=== PATIENT | male | born 1965 | race Caucasian/White ===

== ENCOUNTER 2021-07-25 00:13 | Emergency (ER) | payer BC ==
[2021-07-25] MEDS ORDERED: SODIUM CHLORIDE 0.9% 1,000 ML IV STA ×2 (00:18→01:26)
--- NOTE | 2021-07-25 00:19 | ED ---
Arrhythmia/Palpitations HPI - General Stated Complaint: Tachycardia Time Seen by Provider: 07/25/21 00:14 Source: RN notes reviewed, old records reviewed Mode of arrival: EMS Limitations: no limitations - History of Present Illness Initial Comments: This is a 48-year-old male presenting by EMS coming in for tachycardia heart rate in the 200s high 100s prior to arrival. History of tachycardia. No drugs or alcohol. Patient going through a lot of stress lately patient stress is related to recent. Patient is in town with family and he didn't feel plan for this weekend. Patient did not take his usual heart rate medication today or chlamydia last few days. Otherwise no fevers no cough congestion or shortness of breath on arrival to ER patient symptoms have resolved MD Complaint: rapid heart beat, "heart racing", palpitations -: minutes(s) Context: occurred during rest, occurred during exertion Arrhythmia History: SVT Associated Symptoms: chest pain, anxiety Treatments Prior to Arrival: beta-kassandra - Related Data Allergies Allergy/AdvReac Type Severity Reaction Status Date / Time ciprofloxacin [From Cipro] Allergy Nausea & Verified 07/25/21 00:21 Vomiting Review of Systems ROS Statement: Those systems with pertinent positive or pertinent negative responses have been documented in the HPI. ROS Other: All systems not noted in ROS Statement are negative. General Exam General appearance: alert, in no apparent distress, anxious Head exam: Present: atraumatic, normocephalic, normal inspection Eye exam: Present: normal appearance, PERRL, EOMI. Absent: scleral icterus, conjunctival injection, periorbital swelling ENT exam: Present: normal exam, mucous membranes moist Neck exam: Present: normal inspection. Absent: tenderness, meningismus, lympha denopathy Respiratory exam: Present: normal lung sounds bilaterally. Absent: respiratory distress, wheezes, rales, rhonchi, stridor Cardiovascular Exam: Present: normal rhythm, tachycardia, normal heart sounds. Absent: systolic murmur, diastolic murmur, rubs, gallop, clicks GI/Abdominal exam: Present: soft, normal bowel sounds. Absent: distended, tenderness, guarding, rebound, rigid Extremities exam: Present: normal inspection, full ROM, normal capillary refill. Absent: tenderness, pedal edema, joint swelling, calf tenderness Back exam: Present: normal inspection Neurological exam: Present: alert, oriented X3, CN II-XII intact Psychiatric exam: Present: normal affect, normal mood Skin exam: Present: warm, dry, intact, normal color. Absent: rash Course Vital Signs 07/25/21 00:17 Temperature 98.6 F Pulse Rate 91 Respiratory 18 Rate Blood Pressure 132/95 O2 Sat by Pulse 94 L Oximetry - Reevaluation(s) Reevaluation #1: 07/25/21 01:54 Medical record is reviewed Reevaluation #2: 07/25/21 01:54 Patient informed of results and questions answered Reevaluation #3: 07/25/21 01:54 Patient continued abnormal heart rate normal sinus rhythm EKG Findings - EKG Comments: EKG Findings:: EKG sinus rhythm 90 MT 173 QRS 90 QTC 383 Medical Decision Making - Medical Decision Making 56 male with tachycardia severe on outpatient basis patient did take his own Toprol into his condition. Patient has normal heart rate normal sinus rhythm here in the ER patient given lab tests and EKGs and can be discharged home - Lab Data Result diagrams: 07/25/21 00:23 07/25/21 00:23 Lab Results 07/25/21 07/25/21 07/25/21 Range/Units 00:23 00:23 00:23 WBC 10.2 (3.8-10.6) k/uL RBC 4.63 (4.30-5.90) m/uL Hgb 14.8 (13.0-17.5) gm/dL Hct 44.8 (39.0-53.0) % MCV 96.8 (80.0-100.0) fL MCH 31.9 (25.0-35.0) pg MCHC 32.9 (31.0-37.0) g/dL RDW 13.5 (11.5-15.5) % Plt Count 294 (150-450) k/uL MPV 7.3 Neutrophils % 83 % Lymphocytes % 9 % Monocytes % 6 % Eosinophils % 1 % Basophils % 0 % Neutrophils # 8.5 H (1.3-7.7) k/uL Lymphocytes # 0.9 L (1.0-4.8) k/uL Monocytes # 0.6 (0-1.0) k/uL Eosinophils # 0.1 (0-0.7) k/uL Basophils # 0.0 (0-0.2) k/uL PT 9.9 (9.0-12.0) sec INR 0.9 (<1.2) APTT 22.8 (22.0-30.0) sec Sodium 137 (137-145) mmol/L Potassium 4.1 (3.5-5.1) mmol/L Chloride 109 H (98-107) mmol/L Carbon Dioxide 21 L (22-30) mmol/L Anion Gap 7 mmol/L BUN 32 H (9-20) mg/dL Creatinine 0.79 (0.66-1.25) mg/dL Est GFR (CKD-EPI)AfAm >90 (>60 ml/min/1.73 sqM) Est GFR (CKD-EPI)NonAf >90 (>60 ml/min/1.73 sqM) Glucose 237 H (74-99) mg/dL Plasma Lactic Acid Mainor (0.7-2.0) mmol/L Calcium 8.7 (8.4-10.2) mg/dL Phosphorus 3.4 (2.5-4.5) mg/dL Magnesium 2.3 (1.6-2.3) mg/dL Total Bilirubin 0.3 (0.2-1.3) mg/dL AST 28 (17-59) U/L ALT 21 (4-49) U/L Alkaline Phosphatase 67 (38-126) U/L Troponin I (0.000-0.034) ng/mL NT-Pro-B Natriuret Pep pg/mL Total Protein 6.3 (6.3-8.2) g/dL Albumin 3.9 (3.5-5.0) g/dL TSH 1.180 (0.465-4.680) mIU/L 07/25/21 07/25/21 07/25/21 Range/Units 00:23 00:23 00:23 WBC (3.8-10.6) k/uL RBC (4.30-5.90) m/uL Hgb (13.0-17.5) gm/dL Hct (39.0-53.0) % MCV (80.0-100.0) fL MCH (25.0-35.0) pg MCHC (31.0-37.0) g/dL RDW (11.5-15.5) % Plt Count (150-450) k/uL MPV Neutrophils % % Lymphocytes % % Monocytes % % Eosinophils % % Basophils % % Neutrophils # (1.3-7.7) k/uL Lymphocytes # (1.0-4.8) k/uL Monocytes # (0-1.0) k/uL Eosinophils # (0-0.7) k/uL Basophils # (0-0.2) k/uL PT (9.0-12.0) sec INR (<1.2) APTT (22.0-30.0) sec Sodium (137-145) mmol/L Potassium (3.5-5.1) mmol/L Chloride (98-107) mmol/L Carbon Dioxide (22-30) mmol/L Anion Gap mmol/L BUN (9-20) mg/dL Creatinine (0.66-1.25) mg/dL Est GFR (CKD-EPI)AfAm (>60 ml/min/1.73 sqM) Est GFR (CKD-EPI)NonAf (>60 ml/min/1.73 sqM) Glucose (74-99) mg/dL Plasma Lactic Acid Mainor 2.3 H* (0.7-2.0) mmol/L Calcium (8.4-10.2) mg/dL Phosphorus (2.5-4.5) mg/dL Magnesium (1.6-2.3) mg/dL Total Bilirubin (0.2-1.3) mg/dL AST (17-59) U/L ALT (4-49) U/L Alkaline Phosphatase (38-126) U/L Troponin I <0.012 (0.000-0.034) ng/mL NT-Pro-B Natriuret Pep 82 pg/mL Total Protein (6.3-8.2) g/dL Albumin (3.5-5.0) g/dL TSH (0.465-4.680) mIU/L Disposition Clinical Impression: Atypical chest pain, Tachycardia Disposition: HOME SELF-CARE Condition: Good Instructions (If sedation given, give patient instructions): Tachycardia (ED) Is patient prescribed a controlled substance at d/c from ED?: No Referrals: None,Stated [Primary Care Provider] - 1-2 days
[2021-07-25 00:21] VITALS: RESP 18; TEMP 98.6
[2021-07-25 00:39] LABS: Basophils % (A) 0 %; Eosinophils # (A) 0.1 k/uL (0-0.7); Eosinophils % (A) 1 %; HCT 44.8 % (39.0-53.0); HGB 14.8 gm/dL (13.0-17.5); Lymphocytes # (A) 0.9 k/uL (1.0-4.8); Lymphocytes % (A) 9 %; MCH 31.9 pg (25.0-35.0); MCHC 32.9 g/dL (31.0-37.0); MCV 96.8 fL (80.0-100.0); Mean Platelet Volume 7.3; Monocytes # (A) 0.6 k/uL (0-1.0); Monocytes % (A) 6 %; Neutrophils # (A) 8.5 k/uL (1.3-7.7); Neutrophils % (A) 83 %; Platelet Count 294 k/uL (150-450); RBC 4.63 m/uL (4.30-5.90); RDW 13.5 % (11.5-15.5); WBC 10.2 k/uL (3.8-10.6)
[2021-07-25 00:48] LABS: INR 0.9 (<1.2); Partial Thromboplastin Time 22.8 sec (22.0-30.0); Prothrombin Time 9.9 sec (9.0-12.0)
[2021-07-25 00:51] LABS: ALT 21 U/L (4-49); AST 28 U/L (17-59); African American GFR (CKD) >90 (>60 ml/min/1.73 sqM); Albumin 3.9 g/dL (3.5-5.0); Alkaline Phosphatase 67 U/L (38-126); Anion Gap 7 mmol/L; Blood Urea Nitrogen 32 mg/dL (9-20); Calcium 8.7 mg/dL (8.4-10.2); Carbon Dioxide 21 mmol/L (22-30); Chloride 109 mmol/L (98-107); Glucose 237 mg/dL (74-99); Magnesium 2.3 mg/dL (1.6-2.3); Non-African American GFR(CKD) >90 (>60 ml/min/1.73 sqM); Phosphorus 3.4 mg/dL (2.5-4.5); Potassium 4.1 mmol/L (3.5-5.1); Sodium 137 mmol/L (137-145); Total Bilirubin 0.3 mg/dL (0.2-1.3); Total Protein 6.3 g/dL (6.3-8.2)
[2021-07-25] MEDS ORDERED: PANTOPRAZOLE 40 MG/10 ML VIAL IVP STA (01:32)
[2021-07-25] MEDS ORDERED: FAMOTIDINE 20 MG/2 ML VIAL IV STA (01:32)
[2021-07-25 03:18] VITALS: BP 115/77; PULSE 76
== END 2021-07-25 02:40 | disposition home or self-care (01) ==
LOC: EC 00:13
DX: R00.0 Tachycardia, unspecified (principal); Z88.1 Allergy status to other antibiotic agents
CPT/HCPCS: 36415; 93005; 83880; 80053; 83605; 83735; 84100; 84443; 84484; 85025; 85610; 85730; 99285; 96374; 96375; C9113

== ENCOUNTER 2021-11-26 23:47 | Emergency (ER) | payer BC ==
[2021-11-26 23:51] VITALS: RESP 16; TEMP 97.7
--- NOTE | 2021-11-26 23:58 | ED ---
Arrhythmia/Palpitations HPI - General Chief Complaint: Chest Pain Stated Complaint: Chest pain Time Seen by Provider: 11/26/21 23:54 Source: patient Mode of arrival: EMS Limitations: no limitations - History of Present Illness Initial Comments: this patient is 56-year-old man who presents with complaint that his heart rate was elevated. Patient states that he has previous history of episodes of tachycardia. Patient states that he had just used his inhaler for his asthma which has been flaring up. The patient states that his heart rate went to pro ximally 150. He took a dose of metoprolol, 100 mg and waited number of minutes. When the heart rate was still elevated he called EMS. The patient states that he was given an IV and medication by EMS and his heart rate slowed MD Complaint: "heart racing" -: minutes(s) Context: occurred during rest Arrhythmia History: SVT Associated Symptoms: denies other symptoms Treatments Prior to Arrival: beta-kassandra, adenosine - Related Data Allergies Allergy/AdvReac Type Severity Reaction Status Date / Time ciprofloxacin [From Cipro] Allergy Nausea & Verified 07/25/21 00:21 Vomiting Review of Systems ROS Statement: Those systems with pertinent positive or pertinent negative responses have been documented in the HPI. ROS Other: All systems not noted in ROS Statement are negative. Constitutional: Denies: fever, chills, weakness Respiratory: Reports: as per HPI, dyspnea, wheezes. Denies: cough Cardiovascular: Reports: palpitations. Denies: chest pain, orthopnea, edema, syncope Gastrointestinal: Denies: abdominal pain, nausea, vomiting, diarrhea Genitourinary: Denies: dysuria, hematuria Musculoskeletal: Denies: back pain Skin: Denies: rash Neurological: Denies: headache, weakness Past Medical History Past Medical History: Asthma, Chest Pain / Angina Additional Past Medical History / Comment(s): tachycardia History of Any Multi-Drug Resistant Organisms: None Reported Past Surgical History: No Surgical Hx Reported Past Psychological History: No Psychological Hx Reported Smoking Status: Never smoker Past Alcohol Use History: Occasional Past Drug Use History: None Reported General Exam Limitations: no limitations General appearance: alert, in no apparent distress Head exam: Present: atraumatic, normocephalic Eye exam: Present: normal appearance. Absent: scleral icterus, conjunctival injection Neck exam: Present: normal inspection Respiratory exam: Present: wheezes. Absent: respiratory distress, rales, rhonchi, stridor Cardiovascular Exam: Present: regular rate, normal rhythm, normal heart sounds. Absent: systolic murmur, diastolic murmur, rubs, gallop GI/Abdominal exam: Present: soft. Absent: distended, tenderness, guarding, rebound, rigid, mass Extremities exam: Present: normal inspection, normal capillary refill. Absent: pedal edema, calf tenderness Back exam: Present: normal inspection. Absent: CVA tenderness (R), CVA tenderness (L) Neurological exam: Present: alert Skin exam: Present: warm, dry, intact, normal color. Absent: rash Course Vital Signs 11/26/21 23:49 Temperature 97.7 F Respiratory 16 Rate O2 Sat by Pulse 98 Oximetry EKG Findings - EKG Results: EKG: interpreted by GABI POSADAS, sinus rhythm (rate 90 bpm), normal axis, normal QRS, normal ST/T, no acute changes Medical Decision Making - Lab Data Result diagrams: 11/27/21 00:10 11/27/21 00:10 Lab Results 11/27/21 11/27/21 11/27/21 Range/Units 00:10 00:10 00:10 WBC 10.9 H (3.8-10.6) k/uL RBC 4.88 (4.30-5.90) m/uL Hgb 15.4 (13.0-17.5) gm/dL Hct 46.4 (39.0-53.0) % MCV 95.0 (80.0-100.0) fL MCH 31.6 (25.0-35.0) pg MCHC 33.3 (31.0-37.0) g/dL RDW 13.2 (11.5-15.5) % Plt Count 395 (150-450) k/uL MPV 7.4 Neutrophils % 78 % Lymphocytes % 13 % Monocytes % 7 % Eosinophils % 1 % Basophils % 0 % Neutrophils # 8.5 H (1.3-7.7) k/uL Lymphocytes # 1.4 (1.0-4.8) k/uL Monocytes # 0.7 (0-1.0) k/uL Eosinophils # 0.1 (0-0.7) k/uL Basophils # 0.1 (0-0.2) k/uL PT 9.7 (9.0-12.0) sec INR 0.9 (<1.2) APTT 20.9 L (22.0-30.0) sec Sodium 136 L (137-145) mmol/L Potassium 4.3 (3.5-5.1) mmol/L Chloride 103 (98-107) mmol/L Carbon Dioxide 21 L (22-30) mmol/L Anion Gap 12 mmol/L BUN 28 H (9-20) mg/dL Creatinine 0.82 (0.66-1.25) mg/dL Est GFR (CKD-EPI)AfAm >90 (>60 ml/min/1.73 sqM) Est GFR (CKD-EPI)NonAf >90 (>60 ml/min/1.73 sqM) Glucose 138 H (74-99) mg/dL Calcium 9.2 (8.4-10.2) mg/dL Magnesium 2.0 (1.6-2.3) mg/dL Total Bilirubin 0.5 (0.2-1.3) mg/dL AST 70 H (17-59) U/L ALT 59 H (4-49) U/L Alkaline Phosphatase 70 (38-126) U/L Troponin I (0.000-0.034) ng/mL Total Protein 6.7 (6.3-8.2) g/dL Albumin 4.2 (3.5-5.0) g/dL 11/27/21 Range/Units 00:10 WBC (3.8-10.6) k/uL RBC (4.30-5.90) m/uL Hgb (13.0-17.5) gm/dL Hct (39.0-53.0) % MCV (80.0-100.0) fL MCH (25.0-35.0) pg MCHC (31.0-37.0) g/dL RDW (11.5-15.5) % Plt Count (150-450) k/uL MPV Neutrophils % % Lymphocytes % % Monocytes % % Eosinophils % % Basophils % % Neutrophils # (1.3-7.7) k/uL Lymphocytes # (1.0-4.8) k/uL Monocytes # (0-1.0) k/uL Eosinophils # (0-0.7) k/uL Basophils # (0-0.2) k/uL PT (9.0-12.0) sec INR (<1.2) APTT (22.0-30.0) sec Sodium (137-145) mmol/L Potassium (3.5-5.1) mmol/L Chloride (98-107) mmol/L Carbon Dioxide (22-30) mmol/L Anion Gap mmol/L BUN (9-20) mg/dL Creatinine (0.66-1.25) mg/dL Est GFR (CKD-EPI)AfAm (>60 ml/min/1.73 sqM) Est GFR (CKD-EPI)NonAf (>60 ml/min/1.73 sqM) Glucose (74-99) mg/dL Calcium (8.4-10.2) mg/dL Magnesium (1.6-2.3) mg/dL Total Bilirubin (0.2-1.3) mg/dL AST (17-59) U/L ALT (4-49) U/L Alkaline Phosphatase (38-126) U/L Troponin I <0.012 (0.000-0.034) ng/mL Total Protein (6.3-8.2) g/dL Albumin (3.5-5.0) g/dL Disposition Clinical Impression: SVT (supraventricular tachycardia) Disposition: HOME SELF-CARE Condition: Good Instructions (If sedation given, give patient instructions): Chest Pain (ED) Is patient prescribed a controlled substance at d/c from ED?: No Referrals: Nonstaff,Physician [Primary Care Provider] - 1-2 days
[2021-11-27] MEDS ORDERED: SODIUM CHLORIDE 0.9% 500 ML 500 ML IV STA (00:06)
--- NOTE | 2021-11-27 00:49 | XR ---
EXAMINATION TYPE: XR chest 1V portable DATE OF EXAM: 11/27/2021 COMPARISON: NONE HISTORY: Dysrhythmia TECHNIQUE: Single view FINDINGS: There is no heart failure nor confluent pneumonic infiltrate. Costophrenic angles are clear . There are calcified granuloma in the right lung. There are chest leads. Bony thorax is intact IMPRESSION: No active cardiopulmonary disease. Normal heart
[2021-11-27] MEDS ORDERED: ONDANSETRON 4 MG/2 ML VIAL IVP STA (01:05)
[2021-11-27 01:10] LABS: ALT 59 U/L (4-49); AST 70 U/L (17-59); African American GFR (CKD) >90 (>60 ml/min/1.73 sqM); Albumin 4.2 g/dL (3.5-5.0); Alkaline Phosphatase 70 U/L (38-126); Anion Gap 12 mmol/L; Blood Urea Nitrogen 28 mg/dL (9-20); Calcium 9.2 mg/dL (8.4-10.2); Carbon Dioxide 21 mmol/L (22-30); Chloride 103 mmol/L (98-107); Glucose 138 mg/dL (74-99); Non-African American GFR(CKD) >90 (>60 ml/min/1.73 sqM); Potassium 4.3 mmol/L (3.5-5.1); Sodium 136 mmol/L (137-145); Total Bilirubin 0.5 mg/dL (0.2-1.3); Total Protein 6.7 g/dL (6.3-8.2)
[2021-11-27 01:11] LABS: Basophils # (A) 0.1 k/uL (0-0.2); Basophils % (A) 0 %; Eosinophils # (A) 0.1 k/uL (0-0.7); Eosinophils % (A) 1 %; HCT 46.4 % (39.0-53.0); HGB 15.4 gm/dL (13.0-17.5); Lymphocytes # (A) 1.4 k/uL (1.0-4.8); Lymphocytes % (A) 13 %; MCH 31.6 pg (25.0-35.0); MCHC 33.3 g/dL (31.0-37.0); Mean Platelet Volume 7.4; Monocytes # (A) 0.7 k/uL (0-1.0); Monocytes % (A) 7 %; Neutrophils # (A) 8.5 k/uL (1.3-7.7); Neutrophils % (A) 78 %; Platelet Count 395 k/uL (150-450); RBC 4.88 m/uL (4.30-5.90); RDW 13.2 % (11.5-15.5); WBC 10.9 k/uL (3.8-10.6)
[2021-11-27 01:16] LABS: INR 0.9 (<1.2); Partial Thromboplastin Time 20.9 sec (22.0-30.0); Prothrombin Time 9.7 sec (9.0-12.0)
== END 2021-11-27 02:55 | disposition home or self-care (01) ==
LOC: EC 23:47
DX: R07.9 Chest pain, unspecified (principal); I47.1 Supraventricular tachycardia; J45.909 Unspecified asthma, uncomplicated; Z88.1 Allergy status to other antibiotic agents
CPT/HCPCS: 36415; 93005; 80053; 83735; 84443; 84484; 85025; 85610; 85730; 71045; 99285; 96374; J2405

== ENCOUNTER 2023-07-19 23:14 | Emergency (ER) | payer BC ==
--- NOTE | 2023-07-19 23:33 | ED ---
Head Injury HPI - General Stated complaint: head injury Time Seen by Provider: 07/19/23 23:32 Source: patient, RN notes reviewed Mode of arrival: ambulatory Limitations: no limitations - History of Present Illness Initial comments: 58 year-old male presenting to the ER with chief complaint of head injury. Patient states he was at a gym picking up a weight and accidentally hit his head on a barbell. He denies loss of consciousness and admits to taking Eliquis daily. He does report a small laceration to his scalp that was bleeding upon incident. Bleeding controlled at this time. Patient's tetanus is up-to-date. Denies any nausea, vomiting, dizziness, lightheadedness post incident. - Related Data Allergies/Adverse reactions: Allergies Allergy/AdvReac Type Severity Reaction Status Date / Time ciprofloxacin [From Cipro] Allergy Nausea & Verified 07/25/21 00:21 Vomiting Review of Systems ROS Statement: Those systems with pertinent positive or pertinent negative responses have been documented in the HPI. ROS Other: All systems not noted in ROS Statement are negative. Past Medical History Past Medical History: Asthma, Chest Pain / Angina Additional Past Medical History / Comment(s): tachycardia History of Any Multi-Drug Resistant Organisms: None Reported Past Surgical History: No Surgical Hx Reported Past Psychological History: No Psychological Hx Reported Smoking Status: Never smoker Past Alcohol Use History: Occasional Past Drug Use History: None Reported General Exam - General Exam Comments Initial Comments: Visual Physical Exam Vital signs reviewed General: Well-appearing, nontoxic, no acute distress. Head: Normocephalic, atraumatic Eyes: PERRLA, EOMI ENT: Airway patent Chest: Nonlabored breathing Skin: No visual rash, normal skin tone Neuro: Alert and oriented 3 Musculoskeletal: No gross abnormalities Limitations: no limitations General appearance: alert, in no apparent distress Head exam: Present: other (0.5 superficial abrasion to left parietal scalp. no active bleeding.) Eye exam: Present: normal appearance, PERRL, EOMI. Absent: scleral icterus, conjunctival injection, periorbital swelling Pupils: Present: normal accommodation ENT exam: Present: normal exam, normal oropharynx, mucous membranes moist Neck exam: Present: normal inspection. Absent: tenderness, meningismus, lymphadenopathy Respiratory exam: Present: normal lung sounds bilaterally. Absent: respiratory distress, wheezes, rales, rhonchi, stridor Cardiovascular Exam: Present: regular rate, normal rhythm, normal heart sounds. Absent: systolic murmur, diastolic murmur, rubs, gallop, clicks Neurological exam: Present: alert, oriented X3, CN II-XII intact Skin exam: Present: warm, dry, intact, normal color. Absent: rash Course Vital Signs 07/19/23 23:49 Temperature 98 F Pulse Rate 64 Respiratory 18 Rate Blood Pressure 175/98 O2 Sat by Pulse 96 Oximetry Medical Decision Making - Medical Decision Making I performed the quick note portion of this chart. Electronically signed by Jesus Diaz PA-C Was pt. sent in by a medical professional or institution (, [facility], JUDGE, urgent care, hospital, or care home...) When possible be specific @ -No Did you speak to anyone other than the patient for history (EMS, parent, family, police, friend...)? What history was obtained from this source @ -No Did you review nursing and triage notes (agree or disagree)? Why? @ -I reviewed and agree with nursing and triage notes Were old charts reviewed (outside hosp., previous admission, EMS record, old EKG, old radiological studies, urgent care reports/EKG's, care home records)? Report findings @ -No old charts were reviewed Differential Diagnosis (chest pain, altered mental status, abdominal pain women, abdominal pain men, vaginal bleeding, weakness, fever, dyspnea, syncope, headache, dizziness, GI bleed, back pain, seizure, CVA, palpatations, mental health, musculoskeletal)? @ -Hemorrhage, mass, hematoma, abrasion, laceration this list is not meant to be all-inclusive. EKG interpreted by me (3pts min.). @ -None X-rays interpreted by me (1pt min.). @ -None done CT interpreted by me (1pt min.). @ -CT brain negative for acute process. U/S interpreted by me (1pt. min.). @ -None done What testing was considered but not performed or refused? (CT, X-rays, U/S, labs)? Why? @ -None What meds were considered but not given or refused? Why? @ -None Did you discuss the management of the patient with other professionals (professionals i.e. BARBARA Curiel, JUDGE, lab, RT, psych nurse, foster care social worker, forming press operator, teacher, audit officer, case mgr)? Give summary @ -No Was smoking cessation discussed for >3mins.? @ -No Was critical care preformed (if so, how long)? @ -No Were there social determinants of health that impacted care today? How? (Homele ssness, low income, unemployed, alcoholism, drug addiction, transportation, low edu. Level, literacy, decrease access to med. care, long-term, rehab)? @ -No Was there de-escalation of care discussed even if they declined (Discuss DNR or withdrawal of care, Hospice)? DNR status @ -No What co-morbidities impacted this encounter? (DM, HTN, Smoking, COPD, CAD, Cancer, CVA, ARF, Chemo, Hep., AIDS, mental health diagnosis, sleep apnea, morbid obesity)? @ -Patient is on Eliquis Was patient admitted / discharged? Hospital course, mention meds given and route, prescriptions, significant lab abnormalities, going to OR and other pertinent info. @ -Discharged. 58-year-old male presented to the ER with a chief complaint of a head injury. History and physical exam completed. Vitals stable. Patient in no signs acute distress and nontoxic-appearing. 0.5 cm superficial abrasion to left parietal scalp. No active bleeding. Pupils equal round and reactive with no acute neurological findings on exam. No evidence of infraorbital or posterior auricular bruising. His tetanus is up-to-date. CT obtained due to patient preference and blood thinner use. CT negative for acute process. Results discussed with patient, all questions answered. Advise close follow-up with PCP. Return parameters discussed. Patient discharged stable condition. Patient verbally expressed understanding and agreement with care plan. Case discussed with ED attending, Dr. Aguilar. Undiagnosed new problem with uncertain prognosis? @ -No Drug Therapy requiring intensive monitoring for toxicity (Heparin, Nitro, Insulin, Cardizem)? @ -No Were any procedures done? @ -No Diagnosis/symptom? @ -Scalp hematoma Acute, or Chronic, or Acute on Chronic? @ -Acute Uncomplicated (without systemic symptoms) or Complicated (systemic symptoms)? @ -Uncomplicated Side effects of treatment? @ -No Exacerbation, Progression, or Severe Exacerbation? @ -No Poses a threat to life or bodily function? How? (Chest pain, [place], [place], pneumonia, PE, COPD, DKA, ARF, appy, cholecystitis, CVA, Diverticulitis, Homicidal, Suicidal, threat to staff... and all critical care pts) @ -No - Radiology Data Radiology results: report reviewed, image reviewed Disposition Clinical Impression: Scalp hematoma Disposition: HOME SELF-CARE Condition: Stable Additional Instructions: Follow-up with PCP. Return to the ER for any new or worsening concerns. Is patient prescribed a controlled substance at d/c from ED?: No Referrals: Earl Bush DO [Primary Care Provider] - 1-2 days Time of Disposition: 01:34
[2023-07-20 00:07] VITALS: BP 175/98; PULSE 64; RESP 18; TEMP 98
--- NOTE | 2023-07-20 01:03 | CT ---
EXAM: CT Head Without Intravenous Contrast CLINICAL HISTORY: ITS.REASON CT Reason: head injury on eliquis TECHNIQUE: Axial computed tomography images of the head/brain without intravenous contrast. CTDI is 49.1 mGy and DLP is 1197.4 mGy-cm. This CT exam was performed using one or more of the following dose reduction techniques: automated exposure control, adjustment of the mA and/or kV according to patient size, and/or use of iterative reconstruction technique. COMPARISON: No relevant prior studies available. FINDINGS: No acute intracranial hemorrhage. No midline shift or mass effect. The territorial stoddard-white matter differentiation is maintained throughout. The ventricles and sulci are commensurate with age. The visualized orbits appear grossly unremarkable. The calvarium is intact. The visualized paranasal sinuses and mastoid air cells are grossly clear. IMPRESSION: No acute intracranial hemorrhage, midline shift, or mass effect.
== END 2023-07-20 01:58 | disposition home or self-care (01) ==
LOC: EC 23:14
DX: S00.03XA Contusion of scalp, initial encounter (principal); Z88.1 Allergy status to other antibiotic agents; W22.09XA Striking against other stationary object, initial encounter
CPT/HCPCS: 70450; 99283

== ENCOUNTER 2023-07-28 03:05 | Inpatient (IN) | payer BC ==
[2023-07-28] MEDS: SODIUM CHLORIDE 0.9% 1,000 ML IV STA (03:28)
[2023-07-28] MEDS: ASPIRIN 81 MG PO STA (03:30)
[2023-07-28] MEDS: KETOROLAC 15 MG/ML 1 ML VIAL IVP STA (03:31)
[2023-07-28 03:40] LABS: Basophils # (A) 0.1 k/uL (0-0.2); Basophils % (A) 1 %; Eosinophils # (A) 0.1 k/uL (0-0.7); Eosinophils % (A) 1 %; HCT 51.2 % (39.0-53.0); HGB 16.6 gm/dL (13.0-17.5); Lymphocytes # (A) 2.1 k/uL (1.0-4.8); Lymphocytes % (A) 20 %; MCH 30.4 pg (25.0-35.0); MCHC 32.5 g/dL (31.0-37.0); MCV 93.7 fL (80.0-100.0); Mean Platelet Volume 7.4; Monocytes # (A) 0.7 k/uL (0-1.0); Monocytes % (A) 7 %; Neutrophils # (A) 7.6 k/uL (1.3-7.7); Neutrophils % (A) 70 %; Platelet Count 306 k/uL (150-450); RBC 5.46 m/uL (4.30-5.90); RDW 13.8 % (11.5-15.5); WBC 10.7 k/uL (3.8-10.6)
[2023-07-28 03:50] LABS: ALT 24 U/L (4-49); AST 23 U/L (17-59); African American GFR (CKD) >90 (>60 ml/min/1.73 sqM); Albumin 4.1 g/dL (3.5-5.0); Alkaline Phosphatase 52 U/L (38-126); Anion Gap 15 mmol/L; Blood Urea Nitrogen 21 mg/dL (9-20); Calcium 9.8 mg/dL (8.4-10.2); Carbon Dioxide 17 mmol/L (22-30); Chloride 103 mmol/L (98-107); Glucose 122 mg/dL (74-99); Magnesium 1.8 mg/dL (1.6-2.3); Non-African American GFR(CKD) >90 (>60 ml/min/1.73 sqM); Potassium 3.5 mmol/L (3.5-5.1); Sodium 135 mmol/L (137-145); Total Bilirubin 0.6 mg/dL (0.2-1.3); Total Protein 6.6 g/dL (6.3-8.2)
[2023-07-28 03:52] LABS: INR 0.9 (<1.2); Partial Thromboplastin Time 22.7 sec (22.0-30.0); Prothrombin Time 9.8 sec (10.0-12.5)
--- NOTE | 2023-07-28 04:07 | ED ---
General Adult HPI - General Chief complaint: Chest Pain Stated complaint: fast heart rate Time Seen by Provider: 07/28/23 03:15 Source: patient, RN notes reviewed, old records reviewed Mode of arrival: EMS Limitations: no limitations - History of Present Illness Initial comments: Patient is a 58-year-old male with past medical history remarkable for asthma, angina, costochondritis, as well as SVT and atrial fibrillation. He is on Eliquis as well as rate control agents at home. States he awoke in SVT. Checked his pulse which was 200. Took 4 tablets of his home metoprolol. On the way to the hospital, and EMS he did improve and converted to normal sinus rhythm. Presents for further evaluation at this time. Denies any shortness of breath, nausea, vomiting, diaphoresis. States he has his typical costochondritis type of pain which is located over his left ribs and substernally, worse with movements and palpation. Denies any other acute complaints at this time. Presents for further evaluation. - Related Data Allergies Allergy/AdvReac Type Severity Reaction Status Date / Time ciprofloxacin [From Cipro] Allergy Nausea & Verified 07/25/21 00:21 Vomiting Review of Systems ROS Statement: Those systems with pertinent positive or pertinent negative responses have been documented in the HPI. Review of Systems: CONST: Denies fever EYES: Denies blurry vision ENT: Denies nasal congestion C/V: Endorses chest wall pain RESP: Denies shortness of breath GI: Denies abdominal pain : Denies dysuria SKIN: Denies rash. MSK: Denies joint pain. NEURO: Denies headache ROS Other: All systems not noted in ROS Statement are negative. Past Medical History Past Medical History: Asthma, Chest Pain / Angina Additional Past Medical History / Comment(s): tachycardia History of Any Multi-Drug Resistant Organisms: None Reported Past Surgical History: No Surgical Hx Reported Past Psychological History: No Psychological Hx Reported Smoking Status: Never smoker Past Alcohol Use History: Occasional Past Drug Use History: None Reported General Exam - General Exam Comments Initial Comments: General: Appears in no acute distress. HEAD: Normal with no signs of head trauma. EYES: PERRLA, EOMI, conjunctiva normal, no discharge. ENT: Hearing grossly intact, normal oropharynx. RESPIRATORY: Clear breath sounds bilaterally. No wheezes, rales, or rhonchi. C/V: Regular rate and rhythm. S1 and S2 auscultated, no edema, peripheral pulses 2+ and intact throughout. Chest wall tenderness to palpation over the lower sternum and left ribs which is chronic for the patient. ABD: Abd is soft, nontender, nondistended EXT: Normal range of motion, no obvious deformity SKIN: No rashes or lesions observed on exposed skin. NEURO: Alert and oriented x 4. Limitations: no limitations Course Vital Signs 07/28/23 07/28/23 03:06 06:09 Temperature 98.1 F Pulse Rate 93 70 Respiratory 18 17 Rate Blood Pressure 142/92 O2 Sat by Pulse 96 Oximetry Medical Decision Making - Medical Decision Making Was pt. sent in by a medical professional or institution (, PA, GATHERING WORKER, urgent care, hospital, or [place] [facility] facility...) When possible be specific @ -No Did you speak to anyone other than the patient for history (EMS, parent, family, police, friend...)? What history was obtained from this source @ -No Did you review nursing and triage notes (agree or disagree)? Why? @ -I reviewed and agree with nursing and triage notes Were old charts reviewed (outside hosp., previous admission, EMS record, old EKG, old radiological studies, urgent care reports/EKG's, [place] [facility] facility records)? Report findings @ -No old charts were reviewed Differential Diagnosis (chest pain, altered mental status, abdominal pain women, abdominal pain men, vaginal bleeding, weakness, fever, dyspnea, syncope, headache, dizziness, GI bleed, back pain, seizure, CVA, palpatations, mental health, musculoskeletal)? @ -Differential Chest Pain: Stable Angina, Unstable Angina, STEMI, NSTEMI Aortic Dissection, Pneumothorax, Musculoskeletal, Esophageal Spasm GERD, Cholecystitis, Pancreatitis, Zoster, this is not meant to be an all-inclusive list. EKG interpreted by me (3pts min.). @ -As above X-rays interpreted by me (1pt min.). @ -Chest x-ray reveals no obvious acute cardiopulmonary process. CT interpreted by me (1pt min.). @ -None done U/S interpreted by me (1pt. min.). @ -None done What testing was considered but not performed or refused? (CT, X-rays, U/S, labs)? Why? @ -None What meds were considered but not given or refused? Why? @ -None Did you discuss the management of the patient with other professionals (professionals i.e. DrFredrick, PA, GATHERING WORKER, lab, RT, psych nurse, rn social services, fire control officer, teacher, returning officer, shelter case manager)? Give summary @ -Discussed with Dr. Pisano of the admitting team who accepted the admission. Was smoking cessation discussed for >3mins.? @ -No Was critical care preformed (if so, how long)? @ -Yes, 32 minutes Were there social determinants of health that impacted care today? How? (Homelessness, low income, unemployed, alcoholism, drug addiction, transportation, low edu. Level, literacy, decrease access to med. care, long term, rehab)? @ -No Was there de-escalation of care discussed even if they declined (Discuss DNR or withdrawal of care, Hospice)? DNR status @ -No What co-morbidities impacted this encounter? (DM, HTN, Smoking, COPD, CAD, Cancer, CVA, ARF, Chemo, Hep., AIDS, mental health diagnosis, sleep apnea, morbid obesity)? @ -None Was patient admitted / discharged? Hospital course, mention meds given and route, prescriptions, significant lab abnormalities, going to OR and other pertinent info. @ -Based on the patient's presentation and physical exam, presents emergency department after a tachycardic episode at home. Resolved prior to arrival after patient took 4 tablets of his normal metoprolol. Likely was SVT or A-fib. Currently normal sinus rhythm. Has acute on chronic what appears to be chest wall pain at this time as well. Will obtain cardiopulmonary workup. Patient was in agreement this plan. Vital signs currently within acceptable limits. He will receive an aspirin, Toradol, as well as a fluid bolus. EKG shows no signs of acute ischemia. Laboratory studies are within acceptable limits including an undetectable troponin. Chest x-ray reveals no obvious acute cardiopulmonary process. On reevaluation, patient is asymptomatic. I did recommend at least obtaining a second troponin after I did offer observation admission. Patient declines observation admission but is in agreement with second troponin and admission if elevated. 3-hour troponin was minimally elevated 0.065. I updated the patient. He remains asymptomatic however due to the elevated troponin I did recommend admission at this time. Cardiology will evaluate. Echo ordered. Patient started on heparin. Patient in agreement this plan. Spoke with the admitting physician, Dr. Pisano of [facility] who accepted the admission. Undiagnosed new problem with uncertain prognosis? @ -No Drug Therapy requiring intensive monitoring for toxicity (Heparin, Nitro, Insulin, Cardizem)? @ -Heparin Were any procedures done? @ -No Diagnosis/symptom? @ - NSTEMI, possible SVT Acute, or Chronic, or Acute on Chronic? @ -Acute Uncomplicated (without systemic symptoms) or Complicated (systemic symptoms)? @ -Complicated Side effects of treatment? @ -None Exacerbation, Progression, or Severe Exacerbation] @ -No Poses a threat to life or bodily function? @ -Yes - Lab Data Result diagrams: 07/28/23 03:30 07/28/23 03:30 Lab Results 07/28/23 07/28/23 07/28/23 Range/Units 03:30 03:30 03:30 WBC 10.7 H (3.8-10.6) k/uL RBC 5.46 (4.30-5.90) m/uL Hgb 16.6 (13.0-17.5) gm/dL Hct 51.2 (39.0-53.0) % MCV 93.7 (80.0-100.0) fL MCH 30.4 (25.0-35.0) pg MCHC 32.5 (31.0-37.0) g/dL RDW 13.8 (11.5-15.5) % Plt Count 306 (150-450) k/uL MPV 7.4 Neutrophils % 70 % Lymphocytes % 20 % Monocytes % 7 % Eosinophils % 1 % Basophils % 1 % Neutrophils # 7.6 (1.3-7.7) k/uL Lymphocytes # 2.1 (1.0-4.8) k/uL Monocytes # 0.7 (0-1.0) k/uL Eosinophils # 0.1 (0-0.7) k/uL Basophils # 0.1 (0-0.2) k/uL PT 9.8 L (10.0-12.5) sec INR 0.9 (<1.2) APTT 22.7 (22.0-30.0) sec Sodium 135 L (137-145) mmol/L Potassium 3.5 (3.5-5.1) mmol/L Chloride 103 (98-107) mmol/L Carbon Dioxide 17 L (22-30) mmol/L Anion Gap 15 mmol/L BUN 21 H (9-20) mg/dL Creatinine 0.73 (0.66-1.25) mg/dL Est GFR (CKD-EPI)AfAm >90 (>60 ml/min/1.73 sqM) Est GFR (CKD-EPI)NonAf >90 (>60 ml/min/1.73 sqM) Glucose 122 H (74-99) mg/dL Calcium 9.8 (8.4-10.2) mg/dL Magnesium 1.8 (1.6-2.3) mg/dL Total Bilirubin 0.6 (0.2-1.3) mg/dL AST 23 (17-59) U/L ALT 24 (4-49) U/L Alkaline Phosphatase 52 (38-126) U/L Troponin I (0.000-0.034) ng/mL Total Protein 6.6 (6.3-8.2) g/dL Albumin 4.1 (3.5-5.0) g/dL 07/28/23 07/28/23 Range/Units 03:30 06:09 WBC (3.8-10.6) k/uL RBC (4.30-5.90) m/uL Hgb (13.0-17.5) gm/dL Hct (39.0-53.0) % MCV (80.0-100.0) fL MCH (25.0-35.0) pg MCHC (31.0-37.0) g/dL RDW (11.5-15.5) % Plt Count (150-450) k/uL MPV Neutrophils % % Lymphocytes % % Monocytes % % Eosinophils % % Basophils % % Neutrophils # (1.3-7.7) k/uL Lymphocytes # (1.0-4.8) k/uL Monocytes # (0-1.0) k/uL Eosinophils # (0-0.7) k/uL Basophils # (0-0.2) k/uL PT (10.0-12.5) sec INR (<1.2) APTT (22.0-30.0) sec Sodium (137-145) mmol/L Potassium (3.5-5.1) mmol/L Chloride (98-107) mmol/L Carbon Dioxide (22-30) mmol/L Anion Gap mmol/L BUN (9-20) mg/dL Creatinine (0.66-1.25) mg/dL Est GFR (CKD-EPI)AfAm (>60 ml/min/1.73 sqM) Est GFR (CKD-EPI)NonAf (>60 ml/min/1.73 sqM) Glucose (74-99) mg/dL Calcium (8.4-10.2) mg/dL Magnesium (1.6-2.3) mg/dL Total Bilirubin (0.2-1.3) mg/dL AST (17-59) U/L ALT (4-49) U/L Alkaline Phosphatase (38-126) U/L Troponin I <0.012 0.065 H* (0.000-0.034) ng/mL Total Protein (6.3-8.2) g/dL Albumin (3.5-5.0) g/dL - EKG Data -: EKG Interpreted by Me EKG Comments: 12-lead Electrocardiogram Interpretation Note EKG was reviewed and interpreted by myself. 12-lead ECG performed at 0308 is interpreted by me as revealing normal sinus rhythm at a rate of 88 beats per minute. [place] is normal. NH interval is 148 ms, QRS durations 105 ms, QTc is 387 ms.. There were no ST or T wave abnormalities to suggest myocardial ischemia or injury. R wave progression across the precordium was delayed. By my interpretation this EKG is non-diagnostic for acute ischemia. Critical Care Time Critical Care Time: Yes Total Critical Care Time: 32 Disposition Clinical Impression: Acute non-ST elevation myocardial infarction (NSTEMI) Disposition: ADMITTED IP TO THIS HOSP Condition: Stable Referrals: Earl Bush DO [Primary Care Provider] - 1-2 days Time of Disposition: 07:25
--- NOTE | 2023-07-28 04:39 | XR ---
EXAM: XR Chest, 2 Views CLINICAL HISTORY: ITS.REASON XR Reason: Chest Pain TECHNIQUE: Frontal and lateral views of the chest. COMPARISON: No relevant prior studies available. FINDINGS: Lungs: No consolidation or mass. Pleural space: No effusion. Heart: No cardiomegaly. Bones/joints: No acute findings. IMPRESSION: No acute cardiopulmonary process.
[2023-07-28] MEDS ORDERED: ONDANSETRON 4 MG/2 ML VIAL IVP PRN (07:35)
[2023-07-28] MEDS ORDERED: NALOXONE 0.4 MG/ML 1 ML VIAL IV PRN (07:35)
[2023-07-28] MEDS: HEPARIN SOD,PORK IN 0.45% NACL 25,000 UNIT in 0.45% NACL 1 250ML.BAG IV SCH (08:10)
[2023-07-28] MEDS: HEPARIN SODIUM 1,000 UN/ML (10ML VL) IV ONE (08:10)
--- NOTE | 2023-07-28 11:16 | P.CRDCN ---
History of Present Illness Consult date: 07/28/23 Reason for Consult (text): NSTEMI History of present illness: History of present illness: This is a 58-year-old male he follows with a burglar alarm assembler out of the area with past medical history of paroxysmal atrial fibrillation on Eliquis, SVT. Patient presented to the hospital due to palpitations and rapid heartbeat at 200. Patient took extra Rythmol at home to control rate. By EMS, patient had converted to a sinus rhythm. No shortness of breath, no nausea or vomiting. He does have chronic left-sided rib pain worse with movement and has tenderness at the site. Second troponin came back positive and patient has been started on heparin drip. Patient is seen today in the emergency center waiting for bed on the cardiac stepdown unit. EKG Sinus rhythm with sinus arrhythmia at rate of 88 bpm Chest x-ray: No acute process Laboratory studies: WBC 10.7, hemoglobin 16.6. Sodium 135, potassium 3.5, BUN 21 creatinine 0.73. Troponin is 0.012 and 0.065. Home cardiac medications: Eliquis 2.5-5 mg twice daily, Lopressor 25 mg 4-6 times per day, Rythmol 75 mg 4 times daily, Micardis 80 mg daily at 1800 Review Of Systems: At the time of my exam: CONSTITUTIONAL: Denies fever or chills. HEENT: Denies blurred vision, vision changes, or eye pain. Denies hemoptysis CARDIOVASCULAR: Denies chest pain. Denies orthopnea. Denies PND. Denies palpitations RESPIRATORY: Denies shortness of breath. GASTROINTESTINAL: Denies abdominal pain. Denies nausea or vomiting. HEMATOLOGIC: Denies bleeding disorders. GENITOURINARY: Denies any blood in urine. SKIN: Denies pruitis. Denies rash. Physical examination: Gen: This is a 58-year-old male in no acute distress VS: reviewed, blood pressure 142/92, heart rate 93, pulse ox 96% on room air. HEENT: Head is atraumatic, normocephalic. Pupils equal, round. Sclerae is anicteric. NECK: Supple. No JVD. LUNGS: Clear to auscultation. No wheezes or rhonchi. No intercostal ret ractions. HEART: Regular rate and rhythm. No murmur. ABDOMEN: Soft No tenderness. EXTREMITIES: No pedal edema. No calf tenderness. NEUROLOGICAL: Patient is awake, alert and oriented x3. Assessment: Possible non-ST elevated myocardial infarction SVT converted to sinus rhythm History of paroxysmal atrial fibrillation Plan: Resume patient's home cardiac medications Continue heparin drip Obtain 2-D echocardiogram and Doppler study to assess cardiac structure and function Obtain repeat troponins Dr. Mendes discussed with the patient that if repeat troponins or echocardiogram are abnormal, patient would consider having cardiac cath done with Dr. Tellez during this hospitalization. Otherwise if testing is unremarkable, patient would follow-up with his burglar alarm assembler out of town for further workup. Further recommendations to follow based upon clinical course Thank you kindly for this consultation. Nurse practitioner note has been reviewed, I agree with documented findings and plan of care. Patient was seen and examined. Past Medical History Past Medical History: Atrial Fibrillation, Asthma, Chest Pain / Angina Additional Past Medical History / Comment(s): tachycardia/SVT, stress test 2023, adrenal insufficiency, calcifications on aorta History of Any Multi-Drug Resistant Organisms: None Reported Past Surgical History: Heart Catheterization, Orthopedic Surgery Additional Past Surgical History / Comment(s): Sinus Surgeries, tear duct s urgery, left shoulder surgery, cataracts, ACL repair Right leg Past Psychological History: No Psychological Hx Reported Smoking Status: Never smoker Past Alcohol Use History: Occasional Past Drug Use History: None Reported Medications and Allergies Home Medications Medication Instructions Recorded Confirmed Type Apixaban [Eliquis] 2.5 - 5 mg PO BID 07/28/23 07/28/23 History Beclomethasone Dip 80 Mcg/Puff 2 puff INHALATION RT-BID 07/28/23 07/28/23 History [Qvar 80 mcg] Budesonide/Formoterol Fumarate 2 puff INHALATION RT-BID 07/28/23 07/28/23 History [Budesonide-Formoterol 160-4.5] Cyclobenzaprine [Flexeril] 5 mg PO BID PRN 07/28/23 07/28/23 History Cyproheptadine [Cyproheptadine HCl] 4 mg PO TID PRN 07/28/23 07/28/23 History Diclofenac Sodium Gel [Voltaren 1% 2 - 4 gm TOPICAL QID PRN 07/28/23 07/28/23 History Gel] Dicyclomine [Bentyl] 10 mg PO TID PRN 07/28/23 07/28/23 History Fexofenadine HCl [Donna Allergy] 60 mg PO BID 07/28/23 07/28/23 History Hydrocortisone [Cortef] 5 mg PO DAILY@1600 07/28/23 07/28/23 History Hydrocortisone [Cortef] 10 mg PO DAILY 07/28/23 07/28/23 History Ibuprofen [Motrin] 800 mg PO BID PRN 07/28/23 07/28/23 History Indapamide [Lozol] 0.625 mg PO DAILY 07/28/23 07/28/23 History Ketoconazole 2% Shampoo [Nizoral] 1 applic TOPICAL Q3D PRN 07/28/23 07/28/23 History Metoprolol Tartrate [Lopressor] 25 mg PO DIRECTED 07/28/23 07/28/23 History Propafenone [Rythmol] 75 mg PO QID 07/28/23 07/28/23 History Psyllium Husk [Metamucil] 0.4 - 0.8 gm PO HS 07/28/23 07/28/23 History Telmisartan [Micardis] 80 mg PO DAILY@1800 07/28/23 07/28/23 History Tiotropium 2.5 Mcg/Puff [Spiriva 2 puff INHALATION RT-DAILY 07/28/23 07/28/23 History Respimat 2.5 Mcg] levalbuterol HCL [Xopenex 0.63 mg INHALATION RT-HS 07/28/23 07/28/23 History Nebulized] metFORMIN HCL ER [Glucophage XR] 500 mg PO QID 07/28/23 07/28/23 History Allergies Allergy/AdvReac Type Severity Reaction Status Date / Time ciprofloxacin [From Cipro] AdvReac Nausea & Verified 07/28/23 08:24 Vomiting Physical Exam Vitals: Vital Signs Temp Pulse Resp BP Pulse Ox 07/28/23 06:09 70 17 07/28/23 03:06 98.1 F 93 18 142/92 96 Intake and Output 07/27/23 07/28/23 07/28/23 22:59 06:59 14:59 Other: Weight 90.718 kg Results 07/28/23 03:30 07/28/23 03:30 Cardiac Enzymes 07/28/23 07/28/23 07/28/23 Range/Units 03:30 03:30 06:09 AST 23 (17-59) U/L Troponin I <0.012 0.065 H* (0.000-0.034) ng/mL Coagulation 07/28/23 Range/Units 03:30 PT 9.8 L (10.0-12.5) sec APTT 22.7 (22.0-30.0) sec CBC 07/28/23 Range/Units 03:30 WBC 10.7 H (3.8-10.6) k/uL RBC 5.46 (4.30-5.90) m/uL Hgb 16.6 (13.0-17.5) gm/dL Hct 51.2 (39.0-53.0) % Plt Count 306 (150-450) k/uL Comprehensive Metabolic Panel 07/28/23 Range/Units 03:30 Sodium 135 L (137-145) mmol/L Potassium 3.5 (3.5-5.1) mmol/L Chloride 103 (98-107) mmol/L Carbon Dioxide 17 L (22-30) mmol/L BUN 21 H (9-20) mg/dL Creatinine 0.73 (0.66-1.25) mg/dL Glucose 122 H (74-99) mg/dL Calcium 9.8 (8.4-10.2) mg/dL AST 23 (17-59) U/L ALT 24 (4-49) U/L Alkaline Phosphatase 52 (38-126) U/L Total Protein 6.6 (6.3-8.2) g/dL Albumin 4.1 (3.5-5.0) g/dL Current Medications Generic Name Dose Route Start Last Admin Trade Name Freq PRN Reason Stop Dose Admin Heparin Sodium (Porcine) 0 unit 07/28/23 07:34 Heparin Sodium 1,000 Un/Ml (10ml Vl) IV PER PROTOCOL PRN Low PTT Protocol Heparin Sodium/Sodium Chloride 250 mls @ 9.997 mls/hr 07/28/23 07:45 07/28/23 08:10 25,000 unit/ Sodium Chloride IV 11.02 units/kg/hr .Q24H SARA 9.997 mls/hr Administration Protocol 11.02 UNITS/KG/HR Naloxone HCl 0.2 mg 05/22/24 07:35 Naloxone 0.4 Mg/Ml 1 Ml Vial IV Q2M PRN Opioid Reversal Ondansetron HCl 4 mg 07/28/23 07:35 Ondansetron 4 Mg/2 Ml Vial IVP Q8HR PRN Nausea And Vomiting Intake and Output 07/27/23 07/28/23 07/28/23 22:59 06:59 14:59 Other: Weight 90.718 kg 07/28/23 03:30 07/28/23 03:30
[2023-07-28] MEDS ORDERED: DICYCLOMINE 10 MG CAP PO PRN (13:40)
[2023-07-28] MEDS ORDERED: CYPROHEPTADINE 4 MG TABLET PO PRN (13:40)
--- NOTE | 2023-07-28 13:40 | P.HPIM ---
History of Present Illness H&P Date: 07/28/23 History of Presenting Illness: Patient is a very pleasant 58-year-old male with a past medical history of paroxysmal atrial fibrillation on anticoagulation with Eliquis, SVT, adrenal insufficiency, type II zwz-xvtaybt-itiezbvup diabetes mellitus, and CAD without previous stents. He follows with grocery clerk stocking Dr. Ha at [facility] and recently underwent cardiac stress testing in April 2023 with reports of normal results. Patient presented to the emergency department today with a chief complaint of left-sided rib/chest pain followed by episode of SVT/A-fib RVR. Patient reports feeling baseline self when he was suddenly awoken from sleep with pain in his left rib which shortly after was followed by palpitations with an elevated heart rate up to 200s so he took 100 mg of metoprolol (4 tablets of his 25 mg metoprolol) and called EMS transport to the hospital. Per documentation in chart, EMS reported patient converted from SVT to sinus mechanism while enroute to hospital. Patient denied any recent illnesses or exposure to known ill contacts, fevers, chills, headache, lightheadedness, diaphoresis, shortness of breath, cough or congestion, nausea/vomiting, or experiencing any numbness/tingling/weakness/swelling in his extremities. Upon arrival to facility, patient underwent evaluation in the emergency department. Vital signs upon arrival show blood pressure 142/92, heart rate 93, respiratory rate 18, temp 98.1 F, and SpO2 of 96% on room air. EKG was completed showing normal sinus rhythm at 88 bpm with T wave inversion in inferior leads II and aVF. Chest x-ray completed negative for acute cardiopulmonary process. Labs were completed and reviewed. CBC showing mild leukocytosis with WBC count of 10.7 otherwise normal findings. BMP showing hypocarbia with bicarb of 17, elevated anion gap of 15, and mild prerenal azotemia with BUN of 21. Blood glucose was 122. Initial troponin was less than 0.012 repeat troponin of 0.065. Patient was started on heparin infusion and admitted under our services with consultation to cardiology. Review of systems: Pertinent positives and negatives as discussed in HPI, a complete review of systems was performed and all other systems are negative. Physical exam: Vital signs reviewed and stable. General: Nontoxic, no distress and appears stated age. Derm: Skin warm and dry, normal coloration for ethnicity. Head: Atraumatic, normocephalic and symmetric. Eyes: EOM's intact, no lid lag, and anicteric sclera Mouth: no lip lesions, mucus membranes moist Cardiovascular: regular rate and rhythm with normal S1S2, no murmur, positive posterior tibial pulses bilaterally, and cap refill < 2 seconds. Lungs: Respirations even, regular, and unlabored on room air. Lungs CTA bilaterally, no rhonchi, no rales, no wheezing, and no accessory muscle usage. Abdominal: soft, nontender to palpation, no guarding, no appreciable organomegaly Ext: ROM intact. No gross muscle atrophy, no edema, no contractures Neuro: Speech clear, face symmetrical and CN II-XII grossly intact with no noted focal neuro deficits Psych: Alert and oriented to person, place, time, and situation. Appropriate and pleasant affect. Assessment and Plan of Care: Episode of SVT, now maintaining sinus mechanism Elevated troponin, possibly type II NSTEMI resulting from rapid rate Chest/Left Rib pain, rule out acute coronary event Paroxysmal Atrial fibrillation -Cardiology consulted, appreciate recommendations -Telemetry monitoring -Trend troponins -Cardiac diet, NPO at midnight -Continue cardiac medication regimen with aspirin 81 mg daily, losartan 150 mg daily, metoprolol 25 mg twice daily, and Rythmol 75 mg 4 times daily. -Eliquis held at this time and patient to continue with heparin infusion pending further recommendations from cardiology. Monitor PTT for goal therapeutic range of 44 to 79 seconds. -Echocardiogram Adrenal insufficiency -Patient to continue current medication regimen with hydrocortisone 15 mg daily. Type II xzi-erngigd-rncjowbhc diabetes mellitus Hold metformin and patient placed on glycemic protocol with NovoLog sliding scale. Data and imaging reviewed: As stated above in HPI The patient is admitted with an anticipated greater than 2 midnight stay for evaluation of chest pain/left rib pain with episode of SVT. CODE STATUS: Full code DVT prophylaxis: Heparin Anticipated discharge date: Clinical course to determine Anticipated discharge place: Clinical course to determine Patient was seen independently by Nurse Practitioner. This document was prepared using [employer] dictation software. Please allow for errors in prize fighter while rare they do occur. Heladio Moses NP rendered care for this patient independently, reviewed the findi ngs and plan as documented in the note above. I did not physically speak with or examine the patient on this date. Past Medical History Past Medical History: Asthma, Chest Pain / Angina Additional Past Medical History / Comment(s): tachycardia History of Any Multi-Drug Resistant Organisms: None Reported Past Surgical History: No Surgical Hx Reported Past Psychological History: No Psychological Hx Reported Smoking Status: Never smoker Past Alcohol Use History: Occasional Past Drug Use History: None Reported Medications and Allergies Home Medications Medication Instructions Recorded Confirmed Type Apixaban [Eliquis] 2.5 - 5 mg PO BID 07/28/23 07/28/23 History Beclomethasone Dip 80 Mcg/Puff 2 puff INHALATION RT-BID 07/28/23 07/28/23 History [Qvar 80 mcg] Budesonide/Formoterol Fumarate 2 puff INHALATION RT-BID 07/28/23 07/28/23 History [Budesonide-Formoterol 160-4.5] Cyclobenzaprine [Flexeril] 5 mg PO BID PRN 07/28/23 07/28/23 History Cyproheptadine [Cyproheptadine HCl] 4 mg PO TID PRN 07/28/23 07/28/23 History Diclofenac Sodium Gel [Voltaren 1% 2 - 4 gm TOPICAL QID PRN 07/28/23 07/28/23 History Gel] Dicyclomine [Bentyl] 10 mg PO TID PRN 07/28/23 07/28/23 History Fexofenadine HCl [Donna Allergy] 60 mg PO BID 07/28/23 07/28/23 History Hydrocortisone [Cortef] 5 mg PO DAILY@1600 07/28/23 07/28/23 History Hydrocortisone [Cortef] 10 mg PO DAILY 07/28/23 07/28/23 History Ibuprofen [Motrin] 800 mg PO BID PRN 07/28/23 07/28/23 History Indapamide [Lozol] 0.625 mg PO DAILY 07/28/23 07/28/23 History Ketoconazole 2% Shampoo [Nizoral] 1 applic TOPICAL Q3D PRN 07/28/23 07/28/23 History Metoprolol Tartrate [Lopressor] 25 mg PO DIRECTED 07/28/23 07/28/23 History Propafenone [Rythmol] 75 mg PO QID 07/28/23 07/28/23 History Psyllium Husk [Metamucil] 0.4 - 0.8 gm PO HS 07/28/23 07/28/23 History Telmisartan [Micardis] 80 mg PO DAILY@1800 07/28/23 07/28/23 History Tiotropium 2.5 Mcg/Puff [Spiriva 2 puff INHALATION RT-DAILY 07/28/23 07/28/23 History Respimat 2.5 Mcg] levalbuterol HCL [Xopenex 0.63 mg INHALATION RT-HS 07/28/23 07/28/23 History Nebulized] metFORMIN HCL ER [Glucophage XR] 500 mg PO QID 07/28/23 07/28/23 History Allergies Allergy/AdvReac Type Severity Reaction Status Date / Time ciprofloxacin [From Cipro] AdvReac Nausea & Verified 07/28/23 08:24 Vomiting Physical Exam Vitals: Vital Signs Temp Pulse Resp BP Pulse Ox 07/28/23 06:09 70 17 07/28/23 03:06 98.1 F 93 18 142/92 96 Intake and Output 07/27/23 07/28/23 07/28/23 22:59 06:59 14:59 Other: Weight 90.718 kg Results CBC & Chem 7: 07/28/23 03:30 07/28/23 03:30 Labs: Abnormal Lab Results - Last 24 Hours (Table) 07/28/23 07/28/23 07/28/23 Range/Units 03:30 03:30 03:30 WBC 10.7 H (3.8-10.6) k/uL PT 9.8 L (10.0-12.5) sec Sodium 135 L (137-145) mmol/L Carbon Dioxide 17 L (22-30) mmol/L BUN 21 H (9-20) mg/dL Glucose 122 H (74-99) mg/dL Troponin I (0.000-0.034) ng/mL 07/28/23 Range/Units 06:09 WBC (3.8-10.6) k/uL PT (10.0-12.5) sec Sodium (137-145) mmol/L Carbon Dioxide (22-30) mmol/L BUN (9-20) mg/dL Glucose (74-99) mg/dL Troponin I 0.065 H* (0.000-0.034) ng/mL
[2023-07-28] MEDS: HYDROCORTISONE 10 MG TAB PO SCH ×2 (14:48→17:46)
[2023-07-28] MEDS ORDERED: DEXTROSE 50% SYRINGE 50 ML IVP PRN ×2 (14:52)
[2023-07-28] MEDS: LORATADINE 10 MG TAB PO SCH (14:58)
[2023-07-28] MEDS: CYCLOBENZAPRINE 5 MG TAB PO PRN (14:58)
[2023-07-28] MEDS: PROPAFENONE 150 MG TAB PO SCH (15:00)
[2023-07-28] MEDS: INSULIN ASPART (NovoLOG) 100 UNIT/ML VIAL SQ SCH (16:42)
[2023-07-28] MEDS: LOSARTAN 50 MG TAB PO SCH (17:47)
[2023-07-28] MEDS: IPRATROPIUM 0.5 MG/2.5 ML NEBU INHALATION SCH (19:53)
[2023-07-28] MEDS: FLUTICASONE 110 MCG INHALER INHALATION SCH (19:54)
[2023-07-28] MEDS: SYMBICORT 160-4.5 MCG INHALER INHALATION SCH (19:54)
[2023-07-28] MEDS: HEPARIN SODIUM 1,000 UN/ML (10ML VL) IV PRN (20:37)
[2023-07-28 21:58] LABS: Glucose,Whole Blood 114 mg/dL (70-110)
[2023-07-28] MEDS: METOPROLOL TARTRATE 25 MG TAB PO SCH (22:03)
[2023-07-28] MEDS: ALBUTEROL NEBULIZED 1.25 MG/3 ML INHALATION SCH (23:30)
[2023-07-29 04:25] LABS: Basophils # (A) 0.1 k/uL (0-0.2); Basophils % (A) 1 %; Eosinophils # (A) 0.1 k/uL (0-0.7); Eosinophils % (A) 2 %; HCT 43.9 % (39.0-53.0); HGB 14.2 gm/dL (13.0-17.5); Lymphocytes # (A) 1.8 k/uL (1.0-4.8); Lymphocytes % (A) 22 %; MCH 30.2 pg (25.0-35.0); MCHC 32.4 g/dL (31.0-37.0); MCV 93.4 fL (80.0-100.0); Mean Platelet Volume 7.5; Monocytes # (A) 0.6 k/uL (0-1.0); Monocytes % (A) 7 %; Neutrophils # (A) 5.6 k/uL (1.3-7.7); Neutrophils % (A) 67 %; Platelet Count 267 k/uL (150-450); WBC 8.4 k/uL (3.8-10.6)
[2023-07-29 04:35] LABS: INR 0.9 (<1.2); Partial Thromboplastin Time 34.1 sec (22.0-30.0); Prothrombin Time 10.3 sec (10.0-12.5)
[2023-07-29 04:39] LABS: ALT 19 U/L (4-49); AST 16 U/L (17-59); African American GFR (CKD) >90 (>60 ml/min/1.73 sqM); Albumin 3.2 g/dL (3.5-5.0); Alkaline Phosphatase 45 U/L (38-126); Anion Gap 5 mmol/L; Blood Urea Nitrogen 24 mg/dL (9-20); Calcium 8.6 mg/dL (8.4-10.2); Carbon Dioxide 23 mmol/L (22-30); Chloride 108 mmol/L (98-107); Glucose 101 mg/dL (74-99); Non-African American GFR(CKD) >90 (>60 ml/min/1.73 sqM); Potassium 3.6 mmol/L (3.5-5.1); Sodium 136 mmol/L (137-145); Total Bilirubin 0.5 mg/dL (0.2-1.3); Total Protein 5.4 g/dL (6.3-8.2)
[2023-07-29 07:14] LABS: Glucose,Whole Blood 113 mg/dL (70-110)
[2023-07-29] MEDS: ASPIRIN 81 MG PO SCH (08:27)
[2023-07-29] MEDS: hydroCHLOROthiazide 25 MG TAB PO SCH (08:31)
[2023-07-29 10:14] VITALS: BP 175/95; PULSE 75; RESP 14; TEMP 98.1
--- NOTE | 2023-07-29 11:36 | P.PN ---
Subjective Progress Note Date: 07/29/23 Reason for Consult (text): NSTEMI History of present illness: History of present illness: This is a 58-year-old male he follows with a garment form assembler out of the area with past medical history of paroxysmal atrial fibrillation on Eliquis, SVT. Patient presented to the hospital due to palpitations and rapid heartbeat at 200. Patient took extra metoprolol 100 mg at home to control rate. By EMS, patient had converted to a sinus rhythm. No shortness of breath, no nausea or vomiting. He does have chronic left-sided rib pain worse with movement and has tenderness at the site. Second troponin came back positive and patient has been started on heparin drip. Patient is seen today in the emergency center waiting for bed on the cardiac stepdown unit. EKG Sinus rhythm with sinus arrhythmia at rate of 88 bpm Chest x-ray: No acute process Laboratory studies: WBC 10.7, hemoglobin 16.6. Sodium 135, potassium 3.5, BUN 21 creatinine 0.73. Troponin is 0.012 and 0.065. Home cardiac medications: Eliquis 2.5-5 mg twice daily, Lopressor 25 mg 4-6 times per day, Rythmol 75 mg 4 times daily, Micardis 80 mg daily at 1800 07/28 Patient denies having any chest pain. He states he has a chronic costochondritis pain on the left side of his ribs. He states he had a previous cardiac catheterization in 2018 which was normal. His primary garment form assembler is at [facility] and patient has been in contact with him with recommendati ons for cardiac CT which is not available here. Dr. Tellez discussed in detail with the patient that his enzymes are elevated and recommendations are for cardiac catheterization. Patient does not wish to move forward with cardiac catheterization. He voices that he would like to see his own garment form assembler. Blood pressure 116/60, heart rate 58, pulse ox 98% on room air. Troponins 0.012, 0.065, 0.072, 0.054. Hemoglobin A1c 6.4. Sodium 136, potassium 3.6, creatinine 0.67. Physical examination: Gen: This is a 58-year-old male in no acute distress VS: reviewed HEENT: Head is atraumatic, normocephalic. Pupils equal, round. Sclerae is anicteric. NECK: Supple. No JVD. LUNGS: Clear to auscultation. No wheezes or rhonchi. No intercostal retractions. HEART: Regular rate and rhythm. No murmur. ABDOMEN: Soft No tenderness. EXTREMITIES: No pedal edema. No calf tenderness. NEUROLOGICAL: Patient is awake, alert and oriented x3. Assessment: Non-ST elevated myocardial infarction SVT converted to sinus rhythm History of paroxysmal atrial fibrillation Plan: Continue patient's home cardiac medications Continue heparin drip Obtain 2-D echocardiogram and Doppler study to assess cardiac structure and function Patient provided option of cardiac catheterization at this time at [facility]. Patient has been undecided. If patient decides to move forward with cardiac catheterization, we will perform this today with Dr. Tellez. If patient opts out for cardiac catheterization, patient may be transferred to [facility] to see his own garment form assembler. Nurse practitioner note has been reviewed, I agree with documented findings and plan of care. Patient was seen and examined. Objective - Vital Signs Vital signs: Vital Signs Temp 98.0 F 07/29/23 07:15 Pulse 58 L 07/29/23 08:02 Resp 17 07/29/23 08:02 BP 116/60 07/29/23 08:02 Pulse Ox 98 07/29/23 08:02 FiO2 Intake & Output 07/28/23 07/29/23 07/29/23 18:59 06:59 18:59 Intake Total 250.00 Balance 250.00 Intake: Intake, IV Titration 250.00 Amount Heparin Sod,Pork in 0.45% 250.00 NaCl 25,000 unit In 0.45 % NaCl 1 250ml.bag @ 11. 02 UNITS/KG/HR 9.997 mls/ hr IV .Q24H [facility] Rx#: [id number] - Labs CBC & Chem 7: 07/29/23 03:39 07/29/23 03:39 Labs: Abnormal Lab Results - Last 24 Hours (Table) 07/28/23 07/28/23 07/28/23 Range/Units 08:57 13:24 21:56 APTT (22.0-30.0) sec Sodium (137-145) mmol/L Chloride (98-107) mmol/L BUN (9-20) mg/dL Glucose (74-99) mg/dL POC Glucose (mg/dL) 114 H (70-110) mg/dL AST (17-59) U/L Troponin I 0.072 H* 0.054 H* (0.000-0.034) ng/mL Total Protein (6.3-8.2) g/dL Albumin (3.5-5.0) g/dL 07/29/23 07/29/23 07/29/23 Range/Units 03:39 03:39 07:13 APTT 34.1 H (22.0-30.0) sec Sodium 136 L (137-145) mmol/L Chloride 108 H (98-107) mmol/L BUN 24 H (9-20) mg/dL Glucose 101 H (74-99) mg/dL POC Glucose (mg/dL) 113 H (70-110) mg/dL AST 16 L (17-59) U/L Troponin I (0.000-0.034) ng/mL Total Protein 5.4 L (6.3-8.2) g/dL Albumin 3.2 L (3.5-5.0) g/dL
--- NOTE | 2023-07-29 11:44 | P.PN ---
Subjective Progress Note Date: 07/29/23 Hospital Course: Patient is a very pleasant 58-year-old male with a past medical history of paroxysmal atrial fibrillation on anticoagulation with Eliquis, SVT, adrenal insufficiency, type II ddi-zchpqyd-jhfyrdixj diabetes mellitus, and CAD without previous stents. He follows with polysomnography technician Dr. Ha at [facility] and recently underwent cardiac stress testing in April 2023 with reports of normal results. Patient presented to the emergency department today with a chief complaint of left-sided rib/chest pain followed by episode of SVT/A-fib RVR. Patient reports feeling baseline self when he was suddenly awoken from sleep with pain in his left rib which shortly after was followed by palpitations with an elevated heart rate up to 200s so he took 100 mg of metoprolol (4 tablets of his 25 mg metoprolol) and called EMS transport to the hospital. Per documentation in chart, EMS reported patient converted from SVT to sinus mechanism while enroute to hospital. Patient denied any recent illnesses or exposure to known ill contacts, fevers, chills, headache, lightheadedness, diaphoresis, shortness of breath, cough or congestion, nausea/vomiting, or experiencing any numbness/tingling/weakness/swelling in his extremities. Upon arrival to facility, patient underwent evaluation in the emergency department. Vital signs upon arrival show blood pressure 142/92, heart rate 93, respiratory rate 18, temp 98.1 F, and SpO2 of 96% on room air. EKG was completed showing normal sinus rhythm at 88 bpm with T wave inversion in inferior leads II and aVF. Chest x-ray completed negative for acute cardiopulmonary process. Labs were completed and reviewed. CBC showing mild leukocytosis with WBC count of 10.7 otherwise normal findings. BMP showing hypocarbia with bicarb of 17, elevated anion gap of 15, and mild prerenal azotemia with BUN of 21. Blood glucose was 122. Initial troponin was less than 0.012 repeat troponin of 0.065. Patient was started on heparin infusion and admitted under our services with consultation to cardiology. Troponins were trended resulting at less than 0.012, 0.065, 0.072, and 0.054. Patient was evaluated by cardiology who recommended patient undergo cardiac cath and patient initially declining stating he will get an echocardiogram and cardiac catheterization by his primary polysomnography technician. Patient was given the option to undergo further testing here with echo and cardiac cath or to be transferred to [facility] to have procedures completed by his primary polysomnography technician. Physical exam: Vital signs reviewed and stable. General: Nontoxic, no distress and appears stated age. Derm: Skin warm and dry, normal coloration for ethnicity. Head: Atraumatic, normocephalic and symmetric. Eyes: EOM's intact, no lid lag, and anicteric sclera Mouth: no lip lesions, mucus membranes moist Cardiovascular: regular rate and rhythm with normal S1S2, no murmur, positive posterior tibial pulses bilaterally, and cap refill < 2 seconds. Lungs: Respirations even, regular, and unlabored on room air. Lungs CTA bilaterally, no rhonchi, no rales, no wheezing, and no accessory muscle usage. Abdominal: soft, nontender to palpation, no guarding, no appreciable organom egaly Ext: ROM intact. No gross muscle atrophy, no edema, no contractures Neuro: Speech clear, face symmetrical and CN II-XII grossly intact with no noted focal neuro deficits Psych: Alert and oriented to person, place, time, and situation. Appropriate and pleasant affect. Assessment and Plan of Care: Episode of SVT, now maintaining sinus mechanism Elevated troponin, possibly type II NSTEMI resulting from rapid rate Chest/Left Rib pain, rule out acute coronary event Paroxysmal Atrial fibrillation -Cardiology consulted, recommending cardiac catheterization -Telemetry monitoring - Troponins were trended resulting at less than 0.012, 0.065, 0.072, and 0.054. -Continue cardiac medication regimen with aspirin 81 mg daily, losartan 150 mg daily, metoprolol 25 mg twice daily, and Rythmol 75 mg 4 times daily. -Eliquis held at this time and patient to continue with heparin infusion pending further recommendations from cardiology. Monitor PTT for goal therapeutic range of 44 to 79 seconds. -Echocardiogram to be completed Adrenal insufficiency -Patient to continue current medication regimen with hydrocortisone 15 mg daily. Type II iem-lzjppoi-ufcqvxpmu diabetes mellitus Hold metformin and patient placed on glycemic protocol with NovoLog sliding scale. Data and imaging reviewed: Vital signs reviewed. Blood pressure 116/60, heart rate 58, respiratory rate 17, temp 98.0 F, and SpO2 of 98% on room air. Troponins were trended resulting at less than 0.012, 0.065, 0.072, and 0.054. Repeat morning labs showing CBC unremarkable. PTT subtherapeutic at 34.1 seconds and heparin infusion increased to 17.31 units/kg/h. BMP showing hyperchloremia with chloride of 108 and elevated BUN of 24. Hemoglobin A1c resulting at 6.4%. Magnesium 2.0. CODE STATUS: Full code DVT prophylaxis: Heparin Anticipated discharge date: Clinical course to determine Anticipated discharge place: Clinical course to determine Patient was seen independently by Nurse Practitioner. This document was prepared using [employer] dictation software. Please allow for errors in peach grower while rare they do occur. Heladio Moses, COUNTER CLERK [employer] rendered care for this patient independently, reviewed the findings and plan as documented in the note above. I did not physically speak with or examine the patient on this date. Objective - Vital Signs Vital signs: Vital Signs Temp 98.0 F 07/29/23 07:15 Pulse 58 L 07/29/23 08:02 Resp 17 07/29/23 08:02 BP 116/60 07/29/23 08:02 Pulse Ox 98 07/29/23 08:02 FiO2 Intake & Output 07/28/23 07/29/23 07/29/23 18:59 06:59 18:59 Intake Total 250.00 Balance 250.00 Intake: Intake, IV Titration 250.00 Amount Heparin Sod,Pork in 0.45% 250.00 NaCl 25,000 unit In 0.45 % NaCl 1 250ml.bag @ 11. 02 UNITS/KG/HR 9.997 mls/ hr IV .Q24H [facility] Rx#: [id number] - Labs CBC & Chem 7: 07/29/23 03:39 07/29/23 03:39 Labs: Abnormal Lab Results - Last 24 Hours (Table) 07/28/23 07/28/23 07/28/23 Range/Units 08:57 13:24 21:56 APTT (22.0-30.0) sec Sodium (137-145) mmol/L Chloride (98-107) mmol/L BUN (9-20) mg/dL Glucose (74-99) mg/dL POC Glucose (mg/dL) 114 H (70-110) mg/dL AST (17-59) U/L Troponin I 0.072 H* 0.054 H* (0.000-0.034) ng/mL Total Protein (6.3-8.2) g/dL Albumin (3.5-5.0) g/dL 07/29/23 07/29/23 07/29/23 Range/Units 03:39 03:39 07:13 APTT 34.1 H (22.0-30.0) sec Sodium 136 L (137-145) mmol/L Chloride 108 H (98-107) mmol/L BUN 24 H (9-20) mg/dL Glucose 101 H (74-99) mg/dL POC Glucose (mg/dL) 113 H (70-110) mg/dL AST 16 L (17-59) U/L Troponin I (0.000-0.034) ng/mL Total Protein 5.4 L (6.3-8.2) g/dL Albumin 3.2 L (3.5-5.0) g/dL
--- NOTE | 2023-07-29 11:48 | P.DS ---
Providers Date of admission: 07/28/23 07:36 Expected date of discharge: 07/29/23 Attending physician: Asher Pisano MD Consults: 07/28/23 07:35 Consult Physician Routine Consulting Provider: [facility] Consult Reason/Comments: nstemi Do you want consulting provider notified?: Yes Primary care physician: Earl Bush Hospital Course: This is not a discharge summary, but a summary of care as patient left AGAINST MEDICAL ADVICE. Discharge Diagnosis: Episode of SVT, now maintaining sinus mechanism Elevated troponin, possibly type II NSTEMI resulting from rapid rate Chest/Left Rib pain, rule out acute coronary event Paroxysmal Atrial fibrillation Adrenal insufficiency Type II hxi-cdznofb-awdwjdemr diabetes mellitus Hospital Course: Patient is a very pleasant 58-year-old male with a past medical history of paroxysmal atrial fibrillation on anticoagulation with Eliquis, SVT, adrenal insufficiency, type II drs-nihvame-dzfdeunvg diabetes mellitus, and CAD without previous stents. He follows with outside energy sales representatives Dr. Ha at [facility] and recently underwent cardiac stress testing in April 2023 with reports of normal results. Patient presented to the emergency department today with a chief complaint of left-sided rib/chest pain followed by episode of SVT/A-fib RVR. Patient reports feeling baseline self when he was suddenly awoken from sleep with pain in his left rib which shortly after was followed by palpitations with an elevated heart rate up to 200s so he took 100 mg of metoprolol (4 tablets of his 25 mg metoprolol) and called EMS transport to the hospital. Per documentation in chart, EMS reported patient converted from SVT to sinus mechanism while enroute to hospital. Patient denied any recent illnesses or exposure to known ill contacts, fevers, chills, headache, lightheadedness, diaphoresis, shortness of breath, cough or congestion, nausea/vomiting, or experiencing any numbness/tingling/weakness/swelling in his extremities. Upon arrival to facility, patient underwent evaluation in the emergency department. Vital signs upon arrival show blood pressure 142/92, heart rate 93, respiratory rate 18, temp 98.1 F, and SpO2 of 96% on room air. EKG was completed showing normal sinus rhythm at 88 bpm with T wave inversion in inferior leads II and aVF. Chest x-ray completed negative for acute cardiopulmonary process. Labs were completed and reviewed. CBC showing mild leukocytosis with WBC count of 10.7 otherwise normal findings. BMP showing hypocarbia with bicarb of 17, elevated anion gap of 15, and mild prerenal azotemia with BUN of 21. Blood glucose was 122. Initial troponin was less than 0.012 repeat troponin of 0.065. Patient was started on heparin infusion and admitted under our services with consultation to cardiology. Troponins were trended resulting at less than 0.012, 0.065, 0.072, and 0.054. Patient was evaluated by cardiology who recommended patient undergo cardiac cath and patient initially declining stating he will get an echocardiogram and cardiac catheterization by his primary outside energy sales representatives. Patient was given the option to undergo further testing here with echo and cardiac cath or to be transferred to [facility] to have procedures completed by his primary outside energy sales representatives. Per documentation in chart, patient left AGAINST MEDICAL ADVICE on 07/29/2023 at 9:54 AM. Was notified that patient left AMA at 11:39 AM when following up with to see if pt made the decision to be transferred [facility] or complete echocardiogram and cardiac cath here. Patient was seen independently by Nurse Practitioner. This document was prepared using [employer] dictation software. Please allow for errors in master brewer while rare they do occur. Heladio Moses NP rendered care for this patient independently, reviewed the findings and plan as documented in the note above. I did not physically speak with or examine the patient on this date. Patient Condition at Discharge: Undetermined Plan - Discharge Summary New Discharge Prescriptions: No Action levalbuterol HCL [Xopenex Nebulized] 0.63 mg INHALATION RT-HS Telmisartan [Micardis] 80 mg PO DAILY@1800 Budesonide/Formoterol Fumarate [Budesonide-Formoterol 160-4.5] 2 puff INHALATION RT-BID Ibuprofen [Motrin] 800 mg PO BID PRN PRN Reason: Pain Hydrocortisone [Cortef] 5 mg PO DAILY@1600 Cyclobenzaprine [Flexeril] 5 mg PO BID PRN PRN Reason: Muscle Spasm Ketoconazole 2% Shampoo [Nizoral] 1 applic TOPICAL Q3D PRN PRN Reason: irritation Diclofenac Sodium Gel [Voltaren 1% Gel] 2 - 4 gm TOPICAL QID PRN PRN Reason: Pain Cyproheptadine [Cyproheptadine HCl] 4 mg PO TID PRN PRN Reason: Nausea And Vomiting Apixaban [Eliquis] 2.5 - 5 mg PO BID Tiotropium 2.5 Mcg/Puff [Spiriva Respimat 2.5 Mcg] 2 puff INHALATION RT-DAILY Beclomethasone Dip 80 Mcg/Puff [Qvar 80 mcg] 2 puff INHALATION RT-BID Psyllium Husk [Metamucil] 0.4 - 0.8 gm PO HS Fexofenadine HCl [Donna Allergy] 60 mg PO BID Metoprolol Tartrate [Lopressor] 25 mg PO DIRECTED Propafenone [Rythmol] 75 mg PO QID Hydrocortisone [Cortef] 10 mg PO DAILY Dicyclomine [Bentyl] 10 mg PO TID PRN PRN Reason: IBS metFORMIN HCL ER [Glucophage XR] 500 mg PO QID Indapamide [Lozol] 0.625 mg PO DAILY Discharge Medication List Apixaban [Eliquis] 2.5 - 5 mg PO BID 07/28/23 [History] Beclomethasone Dip 80 Mcg/Puff [Qvar 80 mcg] 2 puff INHALATION RT-BID 07/28/23 [History] Budesonide/Formoterol Fumarate [Budesonide-Formoterol 160-4.5] 2 puff INHALATION RT-BID 07/28/23 [History] Cyclobenzaprine [Flexeril] 5 mg PO BID PRN 07/28/23 [History] Cyproheptadine [Cyproheptadine HCl] 4 mg PO TID PRN 07/28/23 [History] Diclofenac Sodium Gel [Voltaren 1% Gel] 2 - 4 gm TOPICAL QID PRN 07/28/23 [History] Dicyclomine [Bentyl] 10 mg PO TID PRN 07/28/23 [History] Fexofenadine HCl [Donna Allergy] 60 mg PO BID 07/28/23 [History] Hydrocortisone [Cortef] 5 mg PO DAILY@1600 07/28/23 [History] Hydrocortisone [Cortef] 10 mg PO DAILY 07/28/23 [History] Ibuprofen [Motrin] 800 mg PO BID PRN 07/28/23 [History] Indapamide [Lozol] 0.625 mg PO DAILY 07/28/23 [History] Ketoconazole 2% Shampoo [Nizoral] 1 applic TOPICAL Q3D PRN 07/28/23 [History] Metoprolol Tartrate [Lopressor] 25 mg PO DIRECTED 07/28/23 [History] Propafenone [Rythmol] 75 mg PO QID 07/28/23 [History] Psyllium Husk [Metamucil] 0.4 - 0.8 gm PO HS 07/28/23 [History] Telmisartan [Micardis] 80 mg PO DAILY@1800 07/28/23 [History] Tiotropium 2.5 Mcg/Puff [Spiriva Respimat 2.5 Mcg] 2 puff INHALATION RT-DAILY 07/28/23 [History] levalbuterol HCL [Xopenex Nebulized] 0.63 mg INHALATION RT-HS 07/28/23 [History] metFORMIN HCL ER [Glucophage XR] 500 mg PO QID 07/28/23 [History] Follow up Appointment(s)/Referral(s): Earl Bush DO [Primary Care Provider] - 1-2 days Discharge Disposition: LEFT AGAINST MEDICAL ADVICE
== END 2023-07-29 09:54 | disposition left against medical advice (07) | DRG 281 ==
LOC: EC 03:05 → 3SCARD 07:36
PROVIDERS: ADMIT Student in an Organized Health Care Education/Training Program; ATTEND Student in an Organized Health Care Education/Training Program
DX: I47.10 Supraventricular tachycardia, unspecified (principal); E27.40 Unspecified adrenocortical insufficiency; I21.A1 Myocardial infarction type 2; E87.8 Other disorders of electrolyte and fluid balance, not elsewhere classified; E11.9 Type 2 diabetes mellitus without complications; I48.0 Paroxysmal atrial fibrillation; J45.909 Unspecified asthma, uncomplicated; Z28.310 Unvaccinated for COVID-19; M94.0 Chondrocostal junction syndrome [Tietze]; I25.10 Atherosclerotic heart disease of native coronary artery without angina pectoris; Z53.29 Procedure and treatment not carried out because of patient's decision for other reasons; K21.9 Gastro-esophageal reflux disease without esophagitis; Z79.01 Long term (current) use of anticoagulants; Z79.51 Long term (current) use of inhaled steroids; Z79.52 Long term (current) use of systemic steroids; Z79.84 Long term (current) use of oral hypoglycemic drugs; Z79.899 Other long term (current) drug therapy; Z95.5 Presence of coronary angioplasty implant and graft; Z88.1 Allergy status to other antibiotic agents
CPT/HCPCS: 36415; 71046; 80053; 83036; 83735; 84443; 84484; 85025; 85610; 85730; 93005; 94640; 96361; 96365; 96366; 96375; 99291

== ENCOUNTER 2024-06-09 20:24 | Observation (INO) | payer BC ==
[2024-06-09] MEDS: NITROGLYCERIN SL TABS 0.4 MG TAB SUBLINGUAL STA (20:46)
[2024-06-09] MEDS: ONDANSETRON 4 MG/2 ML VIAL IVP STA (20:46)
[2024-06-09] MEDS: SODIUM CHLORIDE 0.9% 1,000 ML IV STA (20:48)
[2024-06-09 20:49] LABS: Basophils # (A) 0.1 k/uL (0-0.2); Basophils % (A) 1 %; Eosinophils # (A) 0.4 k/uL (0-0.7); Eosinophils % (A) 6 %; HCT 44.2 % (39.0-53.0); HGB 14.4 gm/dL (13.0-17.5); Lymphocytes # (A) 1.8 k/uL (1.0-4.8); Lymphocytes % (A) 26 %; MCH 29.8 pg (25.0-35.0); MCHC 32.6 g/dL (31.0-37.0); MCV 91.6 fL (80.0-100.0); Mean Platelet Volume 7.4; Monocytes # (A) 0.4 k/uL (0-1.0); Monocytes % (A) 6 %; Neutrophils # (A) 4.2 k/uL (1.3-7.7); Neutrophils % (A) 60 %; Platelet Count 332 k/uL (150-450); RBC 4.82 m/uL (4.30-5.90); RDW 13.2 % (11.5-15.5); WBC 7.1 k/uL (3.8-10.6)
--- NOTE | 2024-06-09 21:00 | XR ---
EXAMINATION TYPE: XR chest 2V DATE OF EXAM: 06/09/2024 8:56 PM COMPARISON: 07/28/2023 CLINICAL INDICATION: Male, 59 years old with history of Chest Pain, TECHNIQUE: XR chest 2V view(s) obtained. FINDINGS: The heart size is normal. The pulmonary vasculature is normal. The lungs are clear. IMPRESSION: 1. No acute pulmonary process. [facility], , 06/09/2024 8:58 PM
[2024-06-09 21:02] LABS: INR 0.9 (<1.2); Partial Thromboplastin Time 22.2 sec (22.0-30.0)
[2024-06-09 21:03] LABS: ALT 25 U/L (4-49); AST 24 U/L (17-59); African American GFR (CKD) >90 (>60 ml/min/1.73 sqM); Albumin 4.2 g/dL (3.5-5.0); Alkaline Phosphatase 65 U/L (38-126); Anion Gap 10 mmol/L; Blood Urea Nitrogen 25 mg/dL (9-20); Calcium 9.6 mg/dL (8.4-10.2); Carbon Dioxide 22 mmol/L (22-30); Chloride 104 mmol/L (98-107); Glucose 220 mg/dL (74-99); Lipase 190 U/L (23-300); Magnesium 1.9 mg/dL (1.6-2.3); Non-African American GFR(CKD) >90 (>60 ml/min/1.73 sqM); Potassium 3.4 mmol/L (3.5-5.1); Sodium 136 mmol/L (137-145); Total Bilirubin 0.5 mg/dL (0.2-1.3); Total Protein 6.5 g/dL (6.3-8.2)
[2024-06-09] MEDS: NITROGLYCERIN OINT 1 INCH/GM PACKET TOPICAL SCH (21:23)
[2024-06-09] MEDS: KETOROLAC 15 MG/ML 1 ML VIAL IVP STA (21:23)
[2024-06-09] MEDS ORDERED: NALOXONE 0.4 MG/ML 1 ML VIAL IV PRN (21:58)
[2024-06-09] MEDS ORDERED: IBUPROFEN 400 MG TAB PO PRN (21:58)
[2024-06-09] MEDS ORDERED: ACETAMINOPHEN TAB 325 MG TAB PO PRN (21:58)
--- NOTE | 2024-06-09 21:58 | ED ---
General Adult HPI - General Chief complaint: Chest Pain Stated complaint: AFib, Chest Pain Time Seen by Provider: 06/09/24 20:30 Source: patient, EMS, RN notes reviewed, old records reviewed Mode of arrival: EMS - History of Present Illness Initial comments: Patient is a 59-year-old male who presents emergency department complaining of chest pain. Has a history of CAD with cardiac stents, atrial tachycardia, angina, chronic chest wall pain, asthma. Patient has a history of adrenal insufficiency as well. Patient states that has been having chest pain intermittently over the last week or so. States that it was somewhat worse tonight at [employer] after he had some palpitations which is why presented for evaluation. Describes it as left-sided inferior most rib pain with some reproducible aspect of movement but also some that is not. States this is slightly different. Has radiation around the left rib towards his back. This is somewhat chronic due to chronic rib injury however it states that the pain is not all reproducible which is somewhat atypical for him. Denies any nausea, vomiting, abdominal pain. Denies any diaphoresis. Presents for further e valuation at this time. - Related Data Home Medications Medication Instructions Recorded Confirmed Apixaban [Eliquis] 2.5 - 5 mg PO BID 07/28/23 07/28/23 Beclomethasone Dip 80 Mcg/Puff 2 puff INHALATION RT-BID 07/28/23 07/28/23 [Qvar 80 mcg] Budesonide/Formoterol Fumarate 2 puff INHALATION RT-BID 07/28/23 07/28/23 [Budesonide-Formoterol 160-4.5] Cyclobenzaprine [Flexeril] 5 mg PO BID PRN 07/28/23 07/28/23 Cyproheptadine [Cyproheptadine HCl] 4 mg PO TID PRN 07/28/23 07/28/23 Diclofenac Sodium Gel [Voltaren 1% 2 - 4 gm TOPICAL QID PRN 07/28/23 07/28/23 Gel] Dicyclomine [Bentyl] 10 mg PO TID PRN 07/28/23 07/28/23 Fexofenadine HCl [Donna Allergy] 60 mg PO BID 07/28/23 07/28/23 Hydrocortisone [Cortef] 5 mg PO DAILY@1600 07/28/23 07/28/23 Hydrocortisone [Cortef] 10 mg PO DAILY 07/28/23 07/28/23 Ibuprofen [Motrin] 800 mg PO BID PRN 07/28/23 07/28/23 Indapamide [Lozol] 0.625 mg PO DAILY 07/28/23 07/28/23 Ketoconazole 2% Shampoo [Nizoral] 1 applic TOPICAL Q3D PRN 07/28/23 07/28/23 Metoprolol Tartrate [Lopressor] 25 mg PO DIRECTED 07/28/23 07/28/23 Propafenone [Rythmol] 75 mg PO QID 07/28/23 07/28/23 Psyllium Husk [Metamucil] 0.4 - 0.8 gm PO HS 07/28/23 07/28/23 Telmisartan [Micardis] 80 mg PO DAILY@1800 07/28/23 07/28/23 Tiotropium 2.5 Mcg/Puff [Spiriva 2 puff INHALATION RT-DAILY 07/28/23 07/28/23 Respimat 2.5 Mcg] levalbuterol HCL [Xopenex 0.63 mg INHALATION RT-HS 07/28/23 07/28/23 Nebulized] metFORMIN HCL ER [Glucophage XR] 500 mg PO QID 07/28/23 07/28/23 Allergies Allergy/AdvReac Type Severity Reaction Status Date / Time ciprofloxacin [From Cipro] AdvReac Nausea & Verified 06/09/24 20:37 Vomiting Review of Systems ROS Statement: Those systems with pertinent positive or pertinent negative responses have been documented in the HPI. Review of Systems: CONST: Denies fever EYES: Denies blurry vision ENT: Denies nasal congestion C/V: Endorses chest wall pain RESP: Denies shortness of breath GI: Denies abdominal pain : Denies dysuria SKIN: Denies rash. MSK: Denies joint pain. NEURO: Denies headache ROS Other: All systems not noted in ROS Statement are negative. Past Medical History Past Medical History: Asthma, Chest Pain / Angina Additional Past Medical History / Comment(s): tachycardia, adrenal insufficiency History of Any Multi-Drug Resistant Organisms: None Reported Past Surgical History: No Surgical Hx Reported Additional Past Surgical History / Comment(s): Sinus Surgeries, tear duct surgery, left shoulder surgery, cataracts, ACL repair Right leg Past Psychological History: No Psychological Hx Reported Smoking Status: Never smoker Past Alcohol Use History: Occasional Past Drug Use History: None Reported General Exam - General Exam Comments Initial Comments: General: Appears in no acute distress. HEAD: Normal with no signs of head trauma. EYES: PERRLA, EOMI, conjunctiva normal, no discharge. ENT: Hearing grossly intact, normal oropharynx. RESPIRATORY: Clear breath sounds bilaterally. No wheezes, rales, or rhonchi. C/V: Regular rate and rhythm. S1 and S2 auscultated, no edema, peripheral pulses 2+ and intact throughout. Chest wall pain is reproducible on palpation along the inferior ribs from the anterior axillary line to the sternum. Patient states there is also a nonreproducible component to it. ABD: Abd is soft, nontender, nondistended EXT: Normal range of motion, no obvious deformity SKIN: No rashes or lesions observed on exposed skin. NEURO: Alert and oriented x 4. Course Vital Signs 06/09/24 06/09/24 20:28 21:24 Temperature 98.4 F Pulse Rate 89 76 Respiratory 18 18 Rate Blood Pressure 148/103 106/68 O2 Sat by Pulse 98 96 Oximetry Medical Decision Making - Medical Decision Making Was pt. sent in by a medical professional or institution (, PA, SALVAGE CUTTER, urgent care, hospital, or custodial...) When possible be specific @ -No Did you speak to anyone other than the patient for history (EMS, parent, family, police, friend...)? What history was obtained from this source @ -No Did you review nursing and triage notes (agree or disagree)? Why? @ -I reviewed and agree with nursing and triage notes Were old charts reviewed (outside hosp., previous admission, EMS record, old EKG, old radiological studies, urgent care reports/EKG's, custodial records)? Report findings @ -No old charts were reviewed Differential Diagnosis (chest pain, altered mental status, abdominal pain women, abdominal pain men, vaginal bleeding, weakness, fever, dyspnea, syncope, headache, dizziness, GI bleed, back pain, seizure, CVA, palpatations, mental health, musculoskeletal)? @ -Differential Chest Pain: Stable Angina, Unstable Angina, STEMI, NSTEMI Aortic Dissection, Pneumothorax, Musculoskeletal, Esophageal Spasm GERD, Cholecystitis, Pancreatitis, Zoster, this is not meant to be an all-inclusive list. EKG interpreted by me (3pts min.). @ -As above X-rays interpreted by me (1pt min.). @ -Chest x-ray reveals no obvious acute cardiopulmonary process. CT interpreted by me (1pt min.). @ -None done U/S interpreted by me (1pt. min.). @ -None done What testing was considered but not performed or refused? (CT, X-rays, U/S, l abs)? Why? @ -None What meds were considered but not given or refused? Why? @ -None Did you discuss the management of the patient with other professionals (professionals i.e. DrFredrick, PA, SALVAGE CUTTER, lab, RT, psych nurse, social work supervisor, forest botany instructor, teacher, chief commercial officer, case manager specialist)? Give summary @ - I spoke with the admitting provider, Dr. Al who accepted the admission. Was smoking cessation discussed for >3mins.? @ -No Was critical care preformed (if so, how long)? @ -No Were there social determinants of health that impacted care today? How? (Homelessness, low income, unemployed, alcoholism, drug addiction, transportation, low edu. Level, literacy, decrease access to med. care, long term, rehab)? @ -No Was there de-escalation of care discussed even if they declined (Discuss DNR or withdrawal of care, Hospice)? DNR status @ -No What co-morbidities impacted this encounter? (DM, HTN, Smoking, COPD, CAD, Cancer, CVA, ARF, Chemo, Hep., AIDS, mental health diagnosis, sleep apnea, morbid obesity)? @ -CAD, atrial tachycardia, hypertension Was patient admitted / discharged? Hospital course, mention meds given and route, prescriptions, significant lab abnormalities, going to OR and other [facility] info. @ -Based on the patient's presentation and physical exam, patient presents emergency department complaining of chest pain. Does have a cardiac history. Seems to be somewhat of a mix of chest wall pain as well as possible cardiogenic pain. Patient will be given a trial of a nitroglycerin tablet to see if it improves the pain. Patient will be given 1 L fluid bolus, and he already rec eived 324 mg of aspirin. He was in agreement this plan. Does have chronic pain at the site. Vitals within acceptable limits. EKG shows PACs but no other obvious acute finding. Repeat EKG remains unremarkable. Laboratory studies returned remarkable for an undetectable troponin. Potassium is slightly low at 3.4 and was replenished. Chest x-ray unremarkable. On reevaluation, the nitro tablet did improve his pain somewhat. Therefore Nitropaste will be applied. States he still has the costochondritis component of his chest wall pain he was given Toradol for this. Discussed with him and he will be admitted to cardiac observation with cardiology evaluation. He was in agreement this plan. I spoke with the admitting provider, Dr. Al who accepted the admission. Undiagnosed new problem with uncertain prognosis? @ -No Drug Therapy requiring intensive monitoring for toxicity (Heparin, Nitro, Insulin, Cardizem)? @ -No Were any procedures done? @ -No Diagnosis/symptom? @ -Chest pain Acute, or Chronic, or Acute on Chronic? @ -Acute Uncomplicated (without systemic symptoms) or Complicated (systemic symptoms)? @ -Complicated Side effects of treatment? @ -No Exacerbation, Progression, or Severe Exacerbation? @ -No Poses a threat to life or bodily function? How? (Chest pain, [place], [place], pneumonia, PE, COPD, DKA, ARF, appy, cholecystitis, CVA, Diverticulitis, Homicidal, Suic idal, threat to staff... and all critical care pts) @ -Potentially, yes - Lab Data Result diagrams: 06/09/24 20:40 06/09/24 20:40 Lab Results 06/09/24 06/09/24 06/09/24 Range/Units 20:40 20:40 20:40 WBC 7.1 (3.8-10.6) k/uL RBC 4.82 (4.30-5.90) m/uL Hgb 14.4 (13.0-17.5) gm/dL Hct 44.2 (39.0-53.0) % MCV 91.6 (80.0-100.0) fL MCH 29.8 (25.0-35.0) pg MCHC 32.6 (31.0-37.0) g/dL RDW 13.2 (11.5-15.5) % Plt Count 332 (150-450) k/uL MPV 7.4 Neutrophils % 60 % Lymphocytes % 26 % Monocytes % 6 % Eosinophils % 6 % Basophils % 1 % Neutrophils # 4.2 (1.3-7.7) k/uL Lymphocytes # 1.8 (1.0-4.8) k/uL Monocytes # 0.4 (0-1.0) k/uL Eosinophils # 0.4 (0-0.7) k/uL Basophils # 0.1 (0-0.2) k/uL PT 10.0 (10.0-12.5) sec INR 0.9 (<1.2) APTT 22.2 (22.0-30.0) sec Sodium 136 L (137-145) mmol/L Potassium 3.4 L (3.5-5.1) mmol/L Chloride 104 (98-107) mmol/L Carbon Dioxide 22 (22-30) mmol/L Anion Gap 10 mmol/L BUN 25 H (9-20) mg/dL Creatinine 0.84 (0.66-1.25) mg/dL Est GFR (CKD-EPI)AfAm >90 (>60 ml/min/1.73 sqM) Est GFR (CKD-EPI)NonAf >90 (>60 ml/min/1.73 sqM) Glucose 220 H (74-99) mg/dL Calcium 9.6 (8.4-10.2) mg/dL Magnesium 1.9 (1.6-2.3) mg/dL Total Bilirubin 0.5 (0.2-1.3) mg/dL AST 24 (17-59) U/L ALT 25 (4-49) U/L Alkaline Phosphatase 65 (38-126) U/L Troponin I (0.000-0.034) ng/mL Total Protein 6.5 (6.3-8.2) g/dL Albumin 4.2 (3.5-5.0) g/dL Lipase 190 (23-300) U/L /06/30 Range/Units 20:40 WBC (3.8-10.6) k/uL RBC (4.30-5.90) m/uL Hgb (13.0-17.5) gm/dL Hct (39.0-53.0) % MCV (80.0-100.0) fL MCH (25.0-35.0) pg MCHC (31.0-37.0) g/dL RDW (11.5-15.5) % Plt Count (150-450) k/uL MPV Neutrophils % % Lymphocytes % % Monocytes % % Eosinophils % % Basophils % % Neutrophils # (1.3-7.7) k/uL Lymphocytes # (1.0-4.8) k/uL Monocytes # (0-1.0) k/uL Eosinophils # (0-0.7) k/uL Basophils # (0-0.2) k/uL PT (10.0-12.5) sec INR (<1.2) APTT (22.0-30.0) sec Sodium (137-145) mmol/L Potassium (3.5-5.1) mmol/L Chloride (98-107) mmol/L Carbon Dioxide (22-30) mmol/L Anion Gap mmol/L BUN (9-20) mg/dL Creatinine (0.66-1.25) mg/dL Est GFR (CKD-EPI)AfAm (>60 ml/min/1.73 sqM) Est GFR (CKD-EPI)NonAf (>60 ml/min/1.73 sqM) Glucose (74-99) mg/dL Calcium (8.4-10.2) mg/dL Magnesium (1.6-2.3) mg/dL Total Bilirubin (0.2-1.3) mg/dL AST (17-59) U/L ALT (4-49) U/L Alkaline Phosphatase (38-126) U/L Troponin I <0.012 (0.000-0.034) ng/mL Total Protein (6.3-8.2) g/dL Albumin (3.5-5.0) g/dL Lipase (23-300) U/L - EKG Data -: EKG Interpreted by Me EKG Comments: 12-lead Electrocardiogram Interpretation Note EKG was reviewed and interpreted by myself. 12-lead ECG performed at 2030 is interpreted by me as revealing normal sinus rhythm at a rate of 96 beats per minute. Patient has a sinus rhythm with what appears to be PACs. [place] is normal. [place] interval is 191 ms, QRS duration is 110 ms, QTc is 410 8 ms.. There were no ST or T wave abnormalities to suggest myocardial ischemia or injury. R wave progression across the precordium was satisfactory. By my interpretation this EKG is non-diagnostic for acute ischemia. 12-lead Electrocardiogram Interpretation Note EKG was reviewed and interpreted by myself. 12-lead ECG performed at 2146 is in terpreted by me as revealing normal sinus rhythm at a rate of 74 beats per minute. [place] is normal. [place] interval is 193 ms, QRS duration is 94 ms, QTc is 427 ms.. There were no ST or T wave abnormalities to suggest myocardial ischemia or injury. R wave progression across the precordium was satisfactory. By my interpretation this EKG is non-diagnostic for acute ischemia. Disposition Clinical Impression: Chest pain Disposition: ADMITTED IP TO THIS HOSP Condition: Stable Instructions (If sedation given, give patient instructions): Chest Pain (ED) Is patient prescribed a controlled substance at d/c from ED?: No Referrals: Earl Bush DO [Primary Care Provider] - 1-2 days Time of Disposition: 21:58
[2024-06-09] MEDS: POTASSIUM CHLORIDE ER 20 MEQ TAB.ER PO STA (22:30)
[2024-06-09 22:48] LABS: Glucose,Whole Blood 116 mg/dL (70-110)
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
[2024-06-10 03:20] LABS: Basophils # (A) 0.1 k/uL (0-0.2); Basophils % (A) 1 %; Eosinophils # (A) 0.6 k/uL (0-0.7); Eosinophils % (A) 9 %; HGB 12.4 gm/dL (13.0-17.5); Lymphocytes # (A) 1.9 k/uL (1.0-4.8); Lymphocytes % (A) 28 %; MCH 29.1 pg (25.0-35.0); MCHC 31.1 g/dL (31.0-37.0); MCV 93.5 fL (80.0-100.0); Mean Platelet Volume 7.7; Monocytes # (A) 0.6 k/uL (0-1.0); Monocytes % (A) 9 %; Neutrophils # (A) 3.5 k/uL (1.3-7.7); Neutrophils % (A) 50 %; Platelet Count 323 k/uL (150-450); RBC 4.28 m/uL (4.30-5.90); RDW 13.5 % (11.5-15.5); WBC 6.9 k/uL (3.8-10.6)
[2024-06-10 03:37] LABS: ALT 21 U/L (4-49); AST 20 U/L (17-59); African American GFR (CKD) >90 (>60 ml/min/1.73 sqM); Albumin 3.4 g/dL (3.5-5.0); Alkaline Phosphatase 50 U/L (38-126); Anion Gap 8 mmol/L; Blood Urea Nitrogen 24 mg/dL (9-20); Calcium 9.4 mg/dL (8.4-10.2); Carbon Dioxide 24 mmol/L (22-30); Chloride 106 mmol/L (98-107); Glucose 75 mg/dL (74-99); Non-African American GFR(CKD) >90 (>60 ml/min/1.73 sqM); Potassium 4.2 mmol/L (3.5-5.1); Sodium 138 mmol/L (137-145); Total Bilirubin 0.5 mg/dL (0.2-1.3); Total Protein 5.5 g/dL (6.3-8.2)
[2024-06-10] MEDS: ONDANSETRON 4 MG/2 ML VIAL IVP PRN (05:15)
[2024-06-10 05:47] LABS: Basophils # (A) 0.1 k/uL (0-0.2); Basophils % (A) 1 %; Eosinophils # (A) 0.8 k/uL (0-0.7); Eosinophils % (A) 11 %; HCT 39.6 % (39.0-53.0); HGB 12.8 gm/dL (13.0-17.5); Lymphocytes # (A) 2.2 k/uL (1.0-4.8); Lymphocytes % (A) 29 %; MCH 30.1 pg (25.0-35.0); MCHC 32.4 g/dL (31.0-37.0); MCV 92.9 fL (80.0-100.0); Mean Platelet Volume 7.5; Monocytes # (A) 0.7 k/uL (0-1.0); Monocytes % (A) 9 %; Neutrophils # (A) 3.4 k/uL (1.3-7.7); Neutrophils % (A) 46 %; Platelet Count 305 k/uL (150-450); RBC 4.26 m/uL (4.30-5.90); RDW 13.6 % (11.5-15.5); WBC 7.4 k/uL (3.8-10.6)
[2024-06-10 06:02] LABS: ALT 20 U/L (4-49); AST 20 U/L (17-59); African American GFR (CKD) >90 (>60 ml/min/1.73 sqM); Albumin 3.3 g/dL (3.5-5.0); Albumin/Globulin Ratio 1.5; Alkaline Phosphatase 43 U/L (38-126); Anion Gap 5 mmol/L; Blood Urea Nitrogen 24 mg/dL (9-20); Calcium 9.3 mg/dL (8.4-10.2); Carbon Dioxide 26 mmol/L (22-30); Chloride 107 mmol/L (98-107); Globulin 2.2 g/dL; Glucose 82 mg/dL (74-99); Magnesium 1.9 mg/dL (1.6-2.3); Non-African American GFR(CKD) >90 (>60 ml/min/1.73 sqM); Potassium 4.2 mmol/L (3.5-5.1); Sodium 138 mmol/L (137-145); Total Bilirubin 0.7 mg/dL (0.2-1.3); Total Protein 5.5 g/dL (6.3-8.2)
[2024-06-10 06:21] LABS: Magnesium 1.9 mg/dL (1.6-2.3)
[2024-06-10] MEDS: INSULIN LISPRO (HumaLOG) 100 UNIT/ML 10 mL VL SQ SCH (08:30)
[2024-06-10 08:31] LABS: Glucose,Whole Blood 84 mg/dL (70-110)
[2024-06-10] MEDS: PSYLLIUM HUSK 100% 6 GM PACKET PO SCH (09:06)
[2024-06-10] MEDS: DRONEDARONE 400 MG TAB PO SCH (09:07)
[2024-06-10] MEDS: HYDROCORTISONE 10 MG TAB PO SCH ×2 (09:08→14:28)
[2024-06-10] MEDS: METOPROLOL TARTRATE 25 MG TAB PO SCH (09:08)
[2024-06-10] MEDS: ENOXAPARIN 40 MG/0.4 ML SYRINGE SQ SCH (09:08)
[2024-06-10 09:46] LABS: Chol/HDL Ratio 4.79 Ratio; LDL Cholesterol,Calculated 125.7 mg/dL (0.0-131.0)
[2024-06-10] MEDS ORDERED: ALPRAZolam 0.5 MG TAB PO PRN (11:55)
[2024-06-10 12:58] LABS: Glucose,Whole Blood 96 mg/dL (70-110)
[2024-06-10] MEDS: CLOPIDOGREL 75 MG TAB PO SCH (13:12)
[2024-06-10] MEDS: polyethylene glycoL 3350 17 GM POWD.PACK PO SCH (13:13)
[2024-06-10] MEDS: COLCHICINE 0.6 MG EACH PO SCH (14:28)
--- NOTE | 2024-06-10 15:29 | P.PN ---
Subjective Progress Note Date: 06/10/24 Hospital course: Patient is a 59-year-old male with a past medical history of adrenal insufficiency, CAD status post stenting, SVT, paroxysmal atrial fibrillation/f lutter not on anticoagulation, and tlj-cptlkvi-bsmkxtplo diabetes mellitus. Patient reports he follows monthly with his nuclear security officer and that his senior reservoir engineer is Dr. Ha. Patient reports he last saw his senior reservoir engineer in April and had echocardiogram done and stress test and everything was normal. He presented to the hospital on 06/09/2024 with a chief complaint of chest/left rib pain. Upon arrival to our facility, patient underwent evaluation in the emergency department. Vital signs on arrival show blood pressure 148/103, heart rate 89, respiratory rate 18, temp 98.4 F, and SpO2 of 98% on room air. EKG completed showing normal sinus rhythm at 74 bpm with no significant T wave or ST abnormality showing no signs of acute ischemia upon personal review and interpretation. Chest x-ray completed negative for acute cardiopulmonary process. Labs were completed and reviewed. CBC was unremarkable. Coagulation profile normal findings. BMP showing mild hypokalemia with potassium of 3.4 and prerenal azotemia with BUN of 25. Blood glucose was 220. Liver profile unremarkable. Troponin was negative at less than 0.012. Patient admitted under our services with consultation to cardiology and echocardiogram was ordered in the emergency department. Troponins trended overnight all negative at less than 0.012 x 3 draws. Lipid profile unremarkable. TSH normal findings at 1.310. Hemoglobin A1c 5.4%. Patient reports he remains free from chest pain or discomfort since receiving Toradol in the emergency department. Currently denies having any pain or complaints at this time. Physical exam: Vital signs reviewed and stable. General: Nontoxic, no distress and appears stated age. Derm: Skin warm and dry, normal coloration for ethnicity. Head: Atraumatic, normocephalic and symmetric. Eyes: EOM's intact, no lid lag, and anicteric sclera Mouth: no lip lesions, mucus membranes moist Cardiovascular: regular rate and rhythm with normal S1S2, no murmur, positive posterior tibial pulses bilaterally, and cap refill < 2 seconds. Lungs: Respirations even, regular, and unlabored on room air. Lungs CTA bilaterally, no rhonchi, no rales, no wheezing, and no accessory muscle usage. Abdominal: soft, nontender to palpation, no guarding, no appreciable organomegaly Ext: ROM intact. No gross muscle atrophy, no edema, no contractures Neuro: Speech clear, face symmetrical and CN II-XII grossly intact with no noted focal neuro deficits Psych: Alert and oriented to person, place, time, and situation. Appropriate and pleasant affect. Assessment and Plan of Care: Chest/Left Rib pain, acute coronary event ruled out CAD status post stenting History of SVT History of paroxysmal atrial fibrillation not on anticoagulation -Cardiology consulted, appreciate recommendations -Telemetry monitoring -Troponins negative -Continue cardiac medication regimen with Plavix 75 mg daily, dronedarone 400 mg twice daily, metoprolol 25 mg twice daily, and Ranexa 500 mg nightly. -Lipid profile unremarkable. Hemoglobin A1c normal findings. -Echocardiogram was already completed, however patient reports normal echocardiogram and stress test at his senior reservoir engineer office, Dr. Ha in Apr 2024. Adrenal insufficiency -Continue daily medication regimen with Cortef 10 mg daily at 9 AM, 5 mg daily at 1 PM, and 2.5 mg daily at 6 PM. -Follow-up outpatient with nuclear security officer as previously scheduled. Hypokalemia, resolved. -Potassium 4.2. Data reviewed: -Morning labs reviewed. CBC showing normocytic anemia with hemoglobin stable at 12.8. BMP showing resolution of hypokalemia with potassium of 4.2 and mild prerenal azotemia with BUN of 24 otherwise normal findings. Blood glucose was 82. Liver profile unremarkable. Magnesium 1.9. Lipid profile unremarkable. TSH normal findings at 1.310. Hemoglobin A1c 5.4%. -Vital signs reviewed. Blood pressure 124/78, heart rate 67, respiratory rate 20, temp 97.9 F, and SpO2 of 95% on room air. CODE STATUS: Full code DVT prophylaxis: Lovenox Discussed with: Patient and RN Anticipated discharge date: Pending clinical course, likely later today pending cardiac clearance Anticipated discharge place: Home Patient was seen independently by Nurse Pracitioner. This document was prepared using [employer] dictation software. Please allow for errors in experimental machining lab manager, while rare they do occur. Heladio Moses NP rendered care for this patient independently, reviewed the findings and plan as documented in the note above and agree with plan. I did n ot physically speak with or examine the patient on this date. Objective - Vital Signs Vital signs: Vital Signs Temp 98.0 F 06/10/24 05:10 Pulse 64 06/10/24 05:10 Resp 16 06/10/24 05:10 BP 121/74 06/10/24 05:10 Pulse Ox 95 06/10/24 05:10 FiO2 Intake & Output 06/09/24 06/10/24 06/10/24 18:59 06:59 18:59 Weight 83.915 kg - Labs CBC & Chem 7: 06/10/24 05:06 06/10/24 05:06 Labs: Abnormal Lab Results - Last 24 Hours (Table) 06/09/24 06/09/24 06/10/24 Range/Units 20:40 22:45 02:29 RBC 4.28 L (4.30-5.90) m/uL Hgb 12.4 L (13.0-17.5) gm/dL Eosinophils # (0-0.7) k/uL Sodium 136 L (137-145) mmol/L Potassium 3.4 L (3.5-5.1) mmol/L BUN 25 H (9-20) mg/dL Glucose 220 H (74-99) mg/dL POC Glucose (mg/dL) 116 H (70-110) mg/dL Total Protein (6.3-8.2) g/dL Albumin (3.5-5.0) g/dL 06/10/24 06/10/24 06/10/24 Range/Units 02:29 05:06 05:06 RBC 4.26 L (4.30-5.90) m/uL Hgb 12.8 L (13.0-17.5) gm/dL Eosinophils # 0.8 H (0-0.7) k/uL Sodium (137-145) mmol/L Potassium (3.5-5.1) mmol/L BUN 24 H 24 H (9-20) mg/dL Glucose (74-99) mg/dL POC Glucose (mg/dL) (70-110) mg/dL Total Protein 5.5 L 5.5 L (6.3-8.2) g/dL Albumin 3.4 L 3.3 L (3.5-5.0) g/dL
[2024-06-10 15:39] VITALS: BP 150/80; PULSE 67; RESP 17; TEMP 98.2
--- NOTE | 2024-06-10 15:44 | P.DS ---
Providers Date of admission: 06/09/24 21:59 Expected date of discharge: 06/10/24 Attending physician: Marjorie Al MD Consults: 06/09/24 21:39 Consult Physician Routine Consulting Provider: [facility] Reason/Comments: chest pain Do you want consulting provider notified?: Yes 06/09/24 21:58 Consult Physician Routine Consulting Provider: [facility] Reason/Comments: chest pain Do you want consulting provider notified?: Yes Primary care physician: Earl Bush Hospital Course: Discharge Diagnosis: Chest/Left Rib pain, acute coronary event ruled out. CAD status post stenting. Continue cardiac medication regimen with Plavix 75 mg daily, dronedarone 400 mg twice daily, metoprolol 25 mg twice daily, and Ranexa 500 mg nightly. History of SVT History of paroxysmal atrial fibrillation not on anticoagulation Adrenal insufficiency. Continue daily medication regimen with Cortef 10 mg daily at 9 AM, 5 mg daily at 1 PM, and 2.5 mg daily at 6 PM. Follow-up outpatient with commercial pest control technician as previously scheduled. Hypokalemia, resolved. Potassium 4.2. Patient discharged home on K-Dur 20 mEq daily. Hospital Course: Patient is a 59-year-old male with a past medical history of adrenal insufficiency, CAD status post stenting, SVT, paroxysmal atrial fibrillation/flutter not on anticoagulation, and gdl-muddohh-iofebxtec diabetes mellitus. Patient reports he follows monthly with his commercial pest control technician and that his supervisor scenic arts is Dr. Ha. Patient reports he last saw his supervisor scenic arts in April and had echocardiogram done and stress test and everything was normal. He presented to the hospital on 06/09/2024 with a chief complaint of chest/left rib pain. Upon arrival to our facility, patient underwent evaluation in the emergency department. Vital signs on arrival show blood pressure 148/103, heart rate 89, respiratory rate 18, temp 98.4 F, and SpO2 of 98% on room air. EKG completed showing normal sinus rhythm at 74 bpm with no significant T wave or ST abnormality showing no signs of acute ischemia upon personal review and interpretation. Chest x-ray completed negative for acute cardiopulmonary process. Labs were completed and reviewed. CBC was unremarkable. Coagulation profile normal findings. BMP showing mild hypokalemia with potassium of 3.4 and prerenal azotemia with BUN of 25. Blood glucose was 220. Liver profile unremarkable. Troponin was negative at less than 0.012. Patient admitted under our services with consultation to cardiology and echocardiogram was ordered in the emergency department. Troponins trended overnight all negative at less than 0.012 x 3 draws. Lipid profile unremarkable. TSH normal findings at 1.310. Hemoglobin A1c 5.4%. Patient reports he remains free from chest pain or discomfort since receiving Toradol in the emergency department. Currently denies having any pain or complaints at this time. Cardiology evaluated recommending patient be discharged home on K- Dur 20 mEq daily and clearing patient from cardiac perspective for discharge. Patient is medically optimized and to follow-up outpatient with PCP in 1 to 2 days and with his primary supervisor scenic arts in 1 week. Physical exam: Vital signs reviewed and stable. General: Nontoxic, no distress and appears stated age. Derm: Skin warm and dry, normal coloration for ethnicity. Head: Atraumatic, normocephalic and symmetric. Eyes: EOM's intact, no lid lag, and anicteric sclera Mouth: no lip lesions, mucus membranes moist Cardiovascular: regular rate and rhythm with normal S1S2, no murmur, positive posterior tibial pulses bilaterally, and cap refill < 2 seconds. Lungs: Respirations even, regular, and unlabored on room air. Lungs CTA bilaterally, no rhonchi, no rales, no wheezing, and no accessory muscle usage. Abdominal: soft, nontender to palpation, no guarding, no appreciable organomegaly Ext: ROM intact. No gross muscle atrophy, no edema, no contractures Neuro: Speech clear, face symmetrical and CN II-XII grossly intact with no noted focal neuro deficits Psych: Alert and oriented to person, place, time, and situation. Appropriate and pleasant affect. A total of 31 minutes of time were spent preparing this complex discharge summary. Pt was discharged on 06/10/24 at 3:30 PM Patient was seen independently by Nurse Practitioner. This document was prepared using [employer] dictation software. Please allow for errors in video manager while rare they do occur. Heladio Moses NP rendered care for this patient independently, reviewed the findings and plan as documented in the note above. I did not physically speak with or examine the patient on this date. Patient Condition at Discharge: Stable Plan - Discharge Summary Discharge Rx Participant: No New Discharge Prescriptions: New Potassium Chloride ER [K-Dur 20] 20 meq PO DAILY #14 tab Continue levalbuterol HCL [Xopenex Nebulized] 0.63 mg INHALATION RT-HS Hydrocortisone [Cortef] 2.5 - 5 mg PO DAILY@1800 Acetaminophen Tab [Tylenol] 1,000 mg PO TID Colchicine [Colcrys] 0.3 mg PO PC-LUNCH Ranolazine [Ranexa] 500 mg PO HS Hydrocortisone [Cortef] 5 - 10 mg PO DAILY@1300 Hydrocortisone [Cortef] 10 - 25 mg PO DAILY ALPRAZolam [Xanax] 0.5 mg PO HS PRN PRN Reason: Anxiety Cyclobenzaprine [Flexeril] 5 mg PO HS PRN PRN Reason: Muscle Spasm icosapent ethyL [Icosapent Ethyl] 2 gm PO BID Metoprolol Tartrate [Lopressor] 25 mg PO BID Dicyclomine [Bentyl] 10 mg PO TID metFORMIN HCL ER [Glucophage XR] 500 mg PO DAILY@0900,1800 Indapamide [Lozol] 1.25 mg PO DIRECTED PRN PRN Reason: FLUID RETENION/BP Dronedarone [Multaq] 400 mg PO BID Clopidogrel [Plavix] 75 mg PO DAILY Ondansetron Odt [Zofran ODT] 8 mg PO Q8HR PRN PRN Reason: Nausea And Vomiting Discharge Medication List Dicyclomine [Bentyl] 10 mg PO TID 07/28/23 [History] Hydrocortisone [Cortef] 2.5 - 5 mg PO DAILY@1800 07/28/23 [History] Indapamide [Lozol] 1.25 mg PO DIRECTED PRN 07/28/23 [History] Metoprolol Tartrate [Lopressor] 25 mg PO BID 07/28/23 [History] levalbuterol HCL [Xopenex Nebulized] 0.63 mg INHALATION RT-HS 07/28/23 [History] metFORMIN HCL ER [Glucophage XR] 500 mg PO DAILY@0900,1800 07/28/23 [History] ALPRAZolam [Xanax] 0.5 mg PO HS PRN 06/10/24 [History] Acetaminophen Tab [Tylenol] 1,000 mg PO TID 06/10/24 [History] Clopidogrel [Plavix] 75 mg PO DAILY 06/10/24 [History] Colchicine [Colcrys] 0.3 mg PO PC-LUNCH 06/10/24 [History] Cyclobenzaprine [Flexeril] 5 mg PO HS PRN 06/10/24 [History] Dronedarone [Multaq] 400 mg PO BID 06/10/24 [History] Hydrocortisone [Cortef] 5 - 10 mg PO DAILY@1300 06/10/24 [History] Hydrocortisone [Cortef] 10 - 25 mg PO DAILY 06/10/24 [History] Ondansetron Odt [Zofran ODT] 8 mg PO Q8HR PRN 06/10/24 [History] Potassium Chloride ER [K-Dur 20] 20 meq PO DAILY #14 tab 06/10/24 [Rx] Ranolazine [Ranexa] 500 mg PO HS 06/10/24 [History] icosapent ethyL [Icosapent Ethyl] 2 gm PO BID 06/10/24 [History] Follow up Appointment(s)/Referral(s): Earl Bush DO [Primary Care Provider] - 1-2 days Jovany Ha DO [REFERRING] - 1 Week Patient Instructions/Handouts: Chest Pain (ED) Activity/Diet/Wound Care/Special Instructions: Activity: As tolerated. Take breaks as needed. Diet: Heart healthy and carb consistent diet. Avoid salts, or foods with hidden salts such as canned or boxed foods and frozen dinners. Extra salt makes your heart work harder and traps the fluid in your body for longer. Special Instructions: Take all of your medications as directed and remember to keep all of your doctor's appointments and follow-up as needed. You will need to follow-up outpatient with your primary care doctor in 1 to 2 days and recommend follow-up with your supervisor scenic arts in 1 week. Thank you for allowing us to participate in your care, it was truly a pleasure having you for our patient!!! Discharge Disposition: HOME SELF-CARE
--- NOTE | 2024-06-10 15:56 | P.CRDCN ---
History of Present Illness Consult date: 06/10/24 History of present illness: HISTORY OF PRESENTING ILLNESS: 59-year-old with history of paroxysmal atrial fibrillation, questionable history of SVT, also history of type 2 diabetes, dyslipidemia, hypertension dyslipidemia, adrenal insufficiency CAD status post PCI He presented to the hospital because he noticed that his heart rates were going high and he had some symptoms of chest pressure and palpitation symptoms. He checked his EKG on cardia mobile device and it picked up a heart rate in 150s and flagging to test atrial fibrillation. He took extra dose of metoprolol as it was instructed to him by his primary multifold operator however he persisted to have symptoms therefore he presented to the ER. In the ER EKG showed sinus rhythm with normal heart rates in the range of 74 bpm. His initial workup including basic labs were essentially within normal limits, troponin was within normal limits EKG showed normal sinus rhythm with no signs of ischemia. Chest x-ray did not show any signs of congestion or consolidation Hemodynamically stable REVIEW OF SYSTEMS: 14 point review of system is negative except what is mentioned above in HPI. PHYSICAL EXAMINATION: Neck: Brisk carotid upstroke, no jugular venous distention. Xanthelasma below the eye Lungs: Clear to auscultation. Heart: Regular rate and rhythm, S1-S2, , no murmur or rub. Abdomen: Soft nontender, positive bowel sounds. Extremities: No edema, intact distal pulses. Neuro: Alert, oritented, no focal deficits. Detailed neuro exam was not performed. ASSESSMENT: # Atypical chest pain # Paroxysmal atrial fibrillation. [id number] score of 2 # CAD status post PCI # History of adrenal insufficiency # Hypokalemia, could be related to hydrocortisone use # Type 2 diabetes # Dyslipidemia with hypertriglyceridemia PLAN: Continue his current home cardiac medication without any changes Add potassium as he was noticed to be mildly hypokalemic on admission. KCl 20 mg daily. He will take magnesium glycinate at home. Will continue. He is also having some dyspepsia/gastritis symptoms for which I would recommend Protonix. At this time patient is very eager to go home. She denies any any chest pain chest pressure or shortness of breath at rest or with activity at this time. He reports that he is physically active with 30 minutes of elliptical use every day. He had a recent stress test with his primary multifold operator in April 2024 which was nonischemic as per his report. He has had a prior heart catheterization but is only on Plavix because he had GI bleeding on aspirin. He is not on anticoagulation however his [id number] score appears to be higher than 2. It appears that patient symptoms could be related to a bout of atrial flutter/fibrillation which cannot resolved with extra dose of metoprolol that patient took as advised by his primary multifold operator. It took longer than he anticipated to work before he presented to the ER. I recommended maybe considering Cardizem instead of pill in the pocket strategy metoprolol which she will discuss with his primary multifold operator. Okay to be discharged from cardiovascular standpoint. Patient has promised me that he will follow-up with his primary multifold operator in next few days. Consider outpatient ablation evaluation. Yasmany Reza MD, FACC, RPVI Thank you for allowing [facility] to participate in th is patient's care. Feel free to reach out in case of any followup questions. Past Medical History Past Medical History: Asthma, Chest Pain / Angina Additional Past Medical History / Comment(s): tachycardia, adrenal insufficiency History of Any Multi-Drug Resistant Organisms: None Reported Past Surgical History: No Surgical Hx Reported Additional Past Surgical History / Comment(s): Sinus Surgeries, tear duct surgery, left shoulder surgery, cataracts, ACL repair Right leg Date of Last Stent Placement:: 08/2023 Past Psychological History: No Psychological Hx Reported Smoking Status: Never smoker Past Alcohol Use History: Occasional Past Drug Use History: None Reported Medications and Allergies Home Medications Medication Instructions Recorded Confirmed Type Dicyclomine [Bentyl] 10 mg PO TID 07/28/23 06/10/24 History Hydrocortisone [Cortef] 2.5 - 5 mg PO DAILY@1800 07/28/23 06/10/24 History Indapamide [Lozol] 1.25 mg PO DIRECTED PRN 07/28/23 06/10/24 History Metoprolol Tartrate [Lopressor] 25 mg PO BID 07/28/23 06/10/24 History levalbuterol HCL [Xopenex 0.63 mg INHALATION RT-HS 07/28/23 06/10/24 History Nebulized] metFORMIN HCL ER [Glucophage XR] 500 mg PO DAILY@0900,1800 07/28/23 06/10/24 History ALPRAZolam [Xanax] 0.5 mg PO HS PRN 06/10/24 06/10/24 History Acetaminophen Tab [Tylenol] 1,000 mg PO TID 06/10/24 06/10/24 History Clopidogrel [Plavix] 75 mg PO DAILY 06/10/24 06/10/24 History Colchicine [Colcrys] 0.3 mg PO PC-LUNCH 06/10/24 06/10/24 History Cyclobenzaprine [Flexeril] 5 mg PO HS PRN 06/10/24 06/10/24 History Dronedarone [Multaq] 400 mg PO BID 06/10/24 06/10/24 History Hydrocortisone [Cortef] 5 - 10 mg PO DAILY@1300 06/10/24 06/10/24 History Hydrocortisone [Cortef] 10 - 25 mg PO DAILY 06/10/24 06/10/24 History Ondansetron Odt [Zofran ODT] 8 mg PO Q8HR PRN 06/10/24 06/10/24 History Potassium Chloride ER [K-Dur 20] 20 meq PO DAILY #14 tab 06/10/24 Rx Ranolazine [Ranexa] 500 mg PO HS 06/10/24 06/10/24 History icosapent ethyL [Icosapent Ethyl] 2 gm PO BID 06/10/24 06/10/24 History Allergies Allergy/AdvReac Type Severity Reaction Status Date / Time ciprofloxacin [From Cipro] AdvReac Nausea & Verified 06/10/24 09:37 Vomiting Physical Exam Vitals: Vital Signs Temp Pulse Pulse Resp BP BP Pulse Ox 06/10/24 15:00 98.2 F 67 17 150/80 96 06/10/24 13:00 97.7 F 61 16 124/76 100 06/10/24 08:30 97.9 F 67 20 124/78 95 06/10/24 05:10 98.0 F 64 16 121/74 95 06/10/24 00:11 97.8 F 58 L 16 119/78 97 06/09/24 23:17 90 18 107/69 99 06/09/24 22:42 66 18 110/70 98 06/09/24 21:24 76 18 106/68 96 06/09/24 20:28 98.4 F 89 18 148/103 98 Intake and Output 06/10/24 06/10/24 06/10/24 06:59 14:59 22:59 Other: Weight 83.915 kg Results 06/10/24 05:06 06/10/24 05:06 Cardiac Enzymes 06/09/24 06/09/24 06/10/24 Range/Units 20:40 20:40 00:07 AST 24 (17-59) U/L Troponin I <0.012 <0.012 (0.000-0.034) ng/mL 06/10/24 06/10/24 06/10/24 Range/Units 02:29 02:29 05:06 AST 20 20 (17-59) U/L Troponin I <0.012 (0.000-0.034) ng/mL Coagulation 06/09/24 Range/Units 20:40 PT 10.0 (10.0-12.5) sec APTT 22.2 (22.0-30.0) sec Lipids 06/10/24 Range/Units 02:29 Triglycerides 131.00 (0.00-149.00) mg/dL Cholesterol 192.00 (0.00-200.00) mg/dL HDL Cholesterol 40.10 (40.00-60.00) mg/dL Cholesterol/HDL Ratio 4.79 Ratio CBC 06/09/24 06/10/24 06/10/24 Range/Units 20:40 02:29 05:06 WBC 7.1 6.9 7.4 (3.8-10.6) k/uL RBC 4.82 4.28 L 4.26 L (4.30-5.90) m/uL Hgb 14.4 12.4 L 12.8 L (13.0-17.5) gm/dL Hct 44.2 40.0 39.6 (39.0-53.0) % Plt Count 332 323 305 (150-450) k/uL Comprehensive Metabolic Panel 06/09/24 06/10/24 06/10/24 Range/Units 20:40 02:29 05:06 Sodium 136 L 138 138 (137-145) mmol/L Potassium 3.4 L 4.2 4.2 (3.5-5.1) mmol/L Chloride 104 106 107 (98-107) mmol/L Carbon Dioxide 22 24 26 (22-30) mmol/L BUN 25 H 24 H 24 H (9-20) mg/dL Creatinine 0.84 0.86 0.87 (0.66-1.25) mg/dL Glucose 220 H 75 82 (74-99) mg/dL Calcium 9.6 9.4 9.3 (8.4-10.2) mg/dL AST 24 20 20 (17-59) U/L ALT 25 21 20 (4-49) U/L Alkaline Phosphatase 65 50 43 (38-126) U/L Total Protein 6.5 5.5 L 5.5 L (6.3-8.2) g/dL Albumin 4.2 3.4 L 3.3 L (3.5-5.0) g/dL Current Medications Generic Name Dose Route Start Last Admin Trade Name Freq PRN Reason Stop Dose Admin Acetaminophen 650 mg 06/09/24 21:58 Acetaminophen Tab 325 Mg Tab PO Q6HR PRN Mild Pain or Fever > 100.5 Albuterol Sulfate 2.5 mg 06/10/24 20:00 Albuterol Nebulized 2.5 Mg/3 Ml INHALATION RT-HS SARA Alprazolam 0.5 mg 06/10/24 11:55 Alprazolam 0.5 Mg Tab PO HS PRN Anxiety Clopidogrel Bisulfate 75 mg 06/10/24 12:00 06/10/24 13:12 Clopidogrel 75 Mg Tab PO 75 mg DAILY SARA Administration Colchicine 0.3 mg 06/10/24 13:30 06/10/24 14:28 Colchicine 0.6 Mg Each PO 0.3 mg PC-LUNCH SARA Administration Cyclobenzaprine HCl 5 mg 06/10/24 21:00 Cyclobenzaprine 5 Mg Tab PO HS PRN Muscle Spasm Dicyclomine HCl 10 mg 06/10/24 16:00 Dicyclomine 10 Mg Cap PO TID SARA Dronedarone 400 mg 06/10/24 07:30 06/10/24 09:07 Dronedarone 400 Mg Tab PO 400 mg AC-BID SARA Administration Enoxaparin Sodium 40 mg 06/10/24 09:00 06/10/24 09:08 Enoxaparin 40 Mg/0.4 Ml Syringe SQ 40 mg DAILY SARA Administration Hydrocortisone 10 mg 06/10/24 09:00 06/10/24 09:08 Hydrocortisone 10 Mg Tab PO 10 mg DAILY SARA Administration Hydrocortisone 5 mg 06/10/24 13:00 06/10/24 14:28 Hydrocortisone 10 Mg Tab PO 5 mg DAILY@1300 [facility] Administration Hydrocortisone 2.5 mg 06/10/24 18:00 Hydrocortisone 10 Mg Tab PO DAILY@1800 [facility] Insulin Human Lispro 0 unit 06/10/24 07:30 06/10/24 13:02 Insulin Lispro (Humalog) 100 Unit/Ml 10 Ml Vl SQ Not Given ACHS [facility] Protocol Metoprolol Tartrate 25 mg 06/10/24 09:00 06/10/24 09:08 Metoprolol Tartrate 25 Mg Tab PO 25 mg BID SARA Administration Naloxone HCl 0.2 mg 06/09/24 21:58 Naloxone 0.4 Mg/Ml 1 Ml Vial IV Q2M PRN Opioid Reversal Nitroglycerin 0.5 inch 06/09/24 21:00 06/10/24 14:26 Nitroglycerin Oint 1 Inch/Gm Packet TOPICAL Not Given Q8H [facility] Polyethylene Glycol 17 gm 06/10/24 11:00 06/10/24 13:13 Polyethylene Glycol 3350 17 Gm Powd.Pack PO Not Given DAILY [facility] Ranolazine 500 mg 06/10/24 21:00 Ranolazine 500 Mg Tab.Er.12h PO HS [facility] Intake and Output 06/10/24 06/10/24 06/10/24 06:59 14:59 22:59 Other: Weight 83.915 kg 06/10/24 05:06 06/10/24 05:06
[2024-06-10] MEDS ORDERED: DICYCLOMINE 10 MG CAP PO SCH (16:00)
[2024-06-10] MEDS ORDERED: HYDROCORTISONE 10 MG TAB PO SCH (18:00)
[2024-06-10] MEDS ORDERED: ALBUTEROL NEBULIZED 2.5 MG/3 ML INHALATION SCH (20:00)
[2024-06-10] MEDS ORDERED: RANOLAZINE 500 MG TAB.ER.12H PO SCH (21:00)
[2024-06-10] MEDS ORDERED: CYCLOBENZAPRINE 5 MG TAB PO PRN (21:00)
--- NOTE | 2024-06-11 11:53 | CA ---
Transthoracic Echo Report Name: Prasanna Francois Age: 59 Gender: M : 1965 Exam Date: 06/10/2024 10:02 Exam Location: [place] Echo Ht (in): 69 Wt (lb): 185 Ordering Physician: Cyrus Norman MD Attending/Referring Phys: [employer] Worker General Krupa Bentley RDCS Procedure CPT: Indications: Chest Pain, Angina pectoris with documented spasm Cardiac Hx: Technical Quality: Good Contrast 1: Total Dose (mL): Contrast 2: Total Dose (mL): MEASUREMENTS (Male / Female) Normal Values 2D ECHO LV Diastolic Diameter PLAX 3.8 cm 4.2 - 5.9 / 3.9 - 5.3 cm LV Systolic Diameter PLAX 2.7 cm IVS Diastolic Thickness 1.5 cm 0.6 - 1.0 / 0.6 - 0.9 cm LVPW Diastolic Thickness 1.4 cm 0.6 - 1.0 / 0.6 - 0.9 cm LV Relative Wall Thickness 0.8 RV Internal Dim ED PLAX 3.1 cm LVOT Diameter 2.0 cm LA Systolic Diameter LX 4.4 cm 3.0 - 4.0 / 2.7 - 3.8 cm LV Diastolic Volume MOD BP 64.9 cm??? 67 - 155 / 56 - 104 cm??? LV Systolic Volume MOD BP 27.8 cm??? 22 - 58 / 19 - 49 cm??? LV Ejection Fraction MOD BP 57.2 % >= 55 % LV Cardiac Index MOD BP 1184.9 cm???/min???m??? LV Diastolic Volume MOD 4C 76.0 cm??? LV Systolic Volume MOD 4C 30.3 cm??? LV Ejection Fraction MOD 4C 60.2 % LV Cardiac Index MOD 4C 1459.8 cm???/min???m??? LV Diastolic Length 4C 7.5 cm LV Systolic Length 4C 6.3 cm LV Diastolic Volume MOD 2C 56.0 cm??? LV Systolic Volume MOD 2C 23.1 cm??? LV Ejection Fraction MOD 2C 58.7 % LV Cardiac Index MOD 2C 1049.1 cm???/min???m??? LV Diastolic Length 2C 7.6 cm LV Systolic Length 2C 7.0 cm LA Volume 68.4 cm??? 18 - 58 / 22 - 52 cm??? LA Volume Index 33.6 cm???/m??? 16 - 28 cm???/m??? M-MODE Aortic Root Diameter MM 3.2 cm LA Systolic Diameter MM 4.2 cm LA Ao Ratio MM 1.3 AV Cusp Separation MM 1.9 cm DOPPLER MV Area PHT 3.1 cm??? Mitral E Point Velocity 89.5 cm/s Mitral A Point Velocity 101.5 cm/s Mitral E to A Ratio 0.9 MV Deceleration Time 246.6 ms TR Peak Velocity 191.0 cm/s TR Peak Gradient 14.6 mmHg Right Ventricular Systolic Press 19.1 mmHg FINDINGS Left Ventricle Left ventricular ejection fraction is estimated at 55-60%. Moderately increased septal wall thickness. Normal left ventricular systolic function with no obvious regional wall motion abnormalities. Left ventricular cavity size normal. Right Ventricle Normal right ventricular size and function. Right ventricular systolic pressure within normal limits. Right Atrium Mild right atrial dilatation. Left Atrium Mildly increased left atrial diameter. Mildly increased left atrial volume. Mildly increased left atrial area. Mitral Valve Structurally normal mitral valve. Mitral annular calcification. Trace to mild mitral regurgitation. No mitral stenosis. Aortic Valve Trileaflet aortic valve. No aortic valve stenosis or regurgitation. Tricuspid Valve Structurally normal tricuspid valve. Mild tricuspid regurgitation. No tricuspid stenosis. Pulmonic Valve Structurally normal pulmonic valve. Trace pulmonic regurgitation. No pulmonic stenosis. Pericardium No pericardial or pleural effusion. Aorta Normal size aortic root and proximal ascending aorta. CONCLUSIONS LVEF 55% No obvious regional wall motion abnormality Normal RV size systolic function Mild biatrial dilatation Mild mitral regurgitation, mild tricuspid regurgitation Previewed by: Dr Yasmany Reza (Electronically Signed) Final Date: 11 June 2024 11:52
== END 2024-06-10 16:21 | disposition home or self-care (01) ==
LOC: EC 20:24 → 6NMEDSUR 21:59
PROVIDERS: ADMIT Internal Medicine; ATTEND Internal Medicine
DX: R07.89 Other chest pain (principal); R07.81 Pleurodynia; I25.10 Atherosclerotic heart disease of native coronary artery without angina pectoris; J45.909 Unspecified asthma, uncomplicated; I48.0 Paroxysmal atrial fibrillation; E11.9 Type 2 diabetes mellitus without complications; E78.1 Pure hyperglyceridemia; I10 Essential (primary) hypertension; E87.6 Hypokalemia; E27.40 Unspecified adrenocortical insufficiency; I47.19 Other supraventricular tachycardia; Z95.5 Presence of coronary angioplasty implant and graft; Z79.02 Long term (current) use of antithrombotics/antiplatelets; Z79.51 Long term (current) use of inhaled steroids; Z79.84 Long term (current) use of oral hypoglycemic drugs; Z79.899 Other long term (current) drug therapy; Z88.1 Allergy status to other antibiotic agents
CPT/HCPCS: 96376; 96372; 96374; 96375; 99285; 36415; 93005; 93306; 80061; 80053 ×2; 84443; 83690; 83735 ×2; 84484 ×2; 85025 ×2; 85610; 85730; 83036; 71046; G0378 ×2; J2405 ×2; J1650; J1885